=== PATIENT | female | born 1970 | race Caucasian/White ===

== ENCOUNTER → 2016-07-08 15:31 | Outpatient (CLI) | payer MEDICAID ==
[2016-02-20 05:59] VITALS: BMI 24.6
[~2016-07-08 15:31] MED LIST: GLIPIZIDE10 MG PO; HYDROCODONE-APA1 TAB PO; LISINOPRIL-HCTZ1 TA2 PO
== END | disposition home or self-care (01) ==
LOC: D.MRI 06-18 16:30
DX: M75.41 Impingement syndrome of right shoulder (principal)

== ENCOUNTER 2018-12-20 18:44 | Inpatient (IN) | payer MEDICAID ==
[~2018-12-20] VITALS: Ht 154.9 cm; Wt 60.3 kg
[2018-12-21] VITALS (7 sets, daily range): BP systolic 115–146; BP diastolic 53–78; Ht 154.9 cm; Wt 60.3 kg
[2018-12-21 06:14] LABS: BASOPHILS 0.2 % (0-2); EOSINOPHILS 1.6 % (0-7); HEMOGLOBIN 12.6 g/dL (12-16); IMMATURE GRANULOCYTES 0.3 % (0-5); LYMPHOCYTES 25.1 % (15-50); MCH 28.1 pg (26.0-34.0); MCHC 32.3 g/dL (31.0-37.0); MCV 87.1 fL (80.0-100.0); MEAN PLATELET VOLUME 8.8 fL (7.4-10.4); MONOCYTES 7.3 % (2-11); NEUTROPHILS 65.5 % (40-80); RBC 4.48 10x6/uL (4.00-5.40); WBC 10.5 10x3/uL (4.8-10.8)
[2018-12-21 06:15] LABS: PLATELET COUNT 379 10x3/uL (130-400)
[2018-12-21 06:22] LABS: ALBUMIN 3.1 g/dL (3.4-5.0); ALKALINE PHOSPHATASE 72 U/L (46-116); ALT (SGPT) 16 U/L (10-68); AMYLASE - SERUM 27 U/L (25-115); BILIRUBIN - TOTAL 0.23 mg/dL (0.2-1.3); CALC OSMOLALITY 289 mosm/kg (275-300); CALCIUM 8.8 mg/dL (8.5-10.1); CARBON DIOXIDE 20.8 mmol/L (21.0-32.0); CHLORIDE - SERUM 112 mmol/L (98-107); CREATININE - SERUM 0.6 mg/dL (0.6-1.3); LIPASE 264 U/L (73-393); POTASSIUM - SERUM 3.4 mmol/L (3.5-5.1); PROTEIN - SERUM 6.3 g/dL (6.4-8.2); SODIUM 144 mmol/L (136-145); UREA NITROGEN 11 mg/dL (7-18); eGFR NON AFRICAN AMERICAN > 90 mL/min (90-120)
[2018-12-21 06:23] LABS: GLUCOSE 173 mg/dL (74-106)
--- NOTE | 2018-12-21 10:55 | NUR ---
PT WANTING TO "GO SMOKE" EXPLAINED TO PT WE WERE UNABLE TO LET HER AFTER PAIN MEDS. DR BURRELL CALLED TO PREOP PT. PT REFUSED TO SIGN CONSENTS. "WOULD YOU HAVE SX HERE?" EXPLAINED TO PT I WAS UNABLE TO GIVE ADVICE. PT TEARFUL. PT UP WALKING IN YUN WITH COFFEE IN HAND. NO S/S OF ACUTE DISTRESS. CL IN PLACE.
--- NOTE | 2018-12-21 11:40 | HP ---
PATIENT: AURELIA TREJO MEDICAL RECORD: [id number] ACCOUNT: [id number] LOCATION:D.MS [id number] : 68 ADMISSION DATE: 12/20/18 PCP: JANEL MIDDLETON MD HISTORY AND PHYSICAL EXAMINATION HISTORY OF PRESENT ILLNESS: Ms. Trejo is a 48-year-old white female that has been experiencing increasing abdominal pain. She has history of a large lower abdominal hernia that has gradually gotten worse. I am unable to reduce it at this time. She has had some nausea and vomiting for the last few days. She is still having bowel movements, but the pain has been increasing. She has an upcoming appointment to see general surgery next week, but at this point, I do not think she can make it. She needs to be admitted for pain control and general surgical consultation. PAST MEDICAL HISTORY: Significant for depression, type 2 diabetes, cervical radiculopathy, chronic pain, hyperlipidemia, hypertension, psoriasis, cystocele, and COPD. PAST SURGICAL HISTORY: Previous surgeries include hernia repair and removal of ovarian cyst. ALLERGIES OR INTOLERANCES: INCLUDE LYRICA, TRAMADOL, AND NSAIDs. SHE STATES SHE HAD AN ANAPHYLACTIC REACTION TO TORADOL POSTOPERATIVELY. HOME MEDICATIONS: Include gabapentin 400 mg t.i.d., hydrocodone 10 p.r.n., venlafaxine 75 mg twice a day, glipizide 10 mg twice a day, lisinopril 10/hydrochlorothiazide 12.5 once a day, Januvia 100 mg a day, simvastatin 20 mg a day, ProAir inhaler, mometasone ointment, metformin 1000 b.i.d., and tizanidine 4 mg t.i.d. p.r.n. FAMILY HISTORY: Significant for cardiovascular disease and diabetes. SOCIAL HISTORY: The patient smokes a pack per day. REVIEW OF SYSTEMS: Significant for increasing abdominal pain, nausea, and vomiting. Still having bowel movements, chronic neck and back pain, rash associated with her psoriasis, and shortness of breath and wheezing from her tobacco abuse. PHYSICAL EXAMINATION: VITAL SIGNS: Height is 5 feet 1 inch, weight 133, BMI 25.2. BP 134/60. She is afebrile with 98% sat and heart rate 77. GENERAL: She is in dxof-pq-kfwhkaym distress secondary to her pain. HEENT: Head is normocephalic. Sclerae nonicteric. SKIN: Reveals widespread psoriatic changes. Mucous membranes are little dry. NECK: Soft. HEART: Regular. LUNGS: Somewhat diminished, but otherwise clear. ABDOMEN: Reveals large lower abdominal wall hernia, which I am unable to reduce at this time. EXTREMITIES: Lower extremities reveal no edema. NEUROLOGIC: Without gross focal deficits. IMPRESSION: 1. Large lower abdominal wall hernia, which is nonreducible. HISTORY AND PHYSICAL [id number] AURELIA TREJO 2. Type 2 diabetes. 3. Psoriasis. 4. Probable COPD. 5. Tobacco abuse. 6. Hypertension. 7. Chronic pain. PLAN: Admit. N.P.O. for now. Get a CT. Get a surgical consult. Sliding scale. Pain control. See orders for plan. TRANSINT:[id number] Voice Confirmation ID: [id number] DOCUMENT ID: [id number] DENNIS MCDONOUGH DO at 1140 CC: [id number] DICTATION DATE: 12/20/181833 LACQUER SPRAY BOOTH OPERATOR: 12/20/181928 ADM IN [facility] [address] [place] [address]
--- NOTE | 2018-12-21 19:28 | NUR ---
LATE ENTRY 0900. PT REFUSE TO SIGN CONSENTS. CALLED INDRA WHO STATED, "HE WOULD SIGN OFF ON HER CASE" SPOKE WITH CHRIST STOVALL WHO SPOKE WITH PT. PT AGREED TO "HAVE SURGERY" CALLED AND SPOKE WITH RN WHO WAS IN ROOM WITH INDRA. INDRA "OK CLD, WAS UNSURE IF HE WOULD DO SURGERY." SPOKE WITH PT ABOUT BEING NPO AFTER MIDNIGHT. CONSENTS NOT DONE DT NOT KNOWING WHICH MD WOULD BE PERFORMING SUGERY. EXPLAINED TO PT SHE MUST NOT LEAVE FLOOR AND WE HAD OPTION TO CONTROL PAIN WITH ETL INFORMATICA ARCHITECT. PT REFUSED, " I WANT TO LEAVE IT HOW IT IS." PT REFUSED NICOTINE PATCH. DILAUDID GIVEN PER MD ORDERS Q4PRN FOR PAIN. NO S/S OF ACUTE DISTRESS. SON AT BEDSIDE DURING CONVERSATION. CL IN PLACE.
--- NOTE | 2018-12-21 20:00 | NUR ---
OUT OF ROOM AT THIS TIME, DR BURRELL CAME BY TO TELL PT WOULD DO SURGERY IN AM BUT NOT IN ROOM
--- NOTE | 2018-12-21 23:00 | NUR ---
DILAUDID AIRCRAFT STRUCTURE MECHANIC STARTED ORDERED AT THIS TIME, INSTRUCTED PT SHE COULD NO LONGER GO OUT, VERBALIZED UNDERSTANDING, CONCENTS SIGNED FOR SURGERY
[2018-12-22 01:25] VITALS: BP 121/63
[2018-12-22 05:29] VITALS: BP 122/77
[2018-12-22 06:46] LABS: BASOPHILS 0.3 % (0-2); EOSINOPHILS 2.2 % (0-7); HEMATOCRIT 34.5 % (36.0-48.0); HEMOGLOBIN 11.1 g/dL (12-16); IMMATURE GRANULOCYTES 0.3 % (0-5); LYMPHOCYTES 33.3 % (15-50); MCH 28.1 pg (26.0-34.0); MCHC 32.2 g/dL (31.0-37.0); MCV 87.3 fL (80.0-100.0); MEAN PLATELET VOLUME 8.6 fL (7.4-10.4); MONOCYTES 6.9 % (2-11); PLATELET COUNT 334 10x3/uL (130-400); RBC 3.95 10x6/uL (4.00-5.40); RDW 15.4 % (11.5-14.5)
[2018-12-22 06:59] LABS: ALBUMIN 2.6 g/dL (3.4-5.0); ALKALINE PHOSPHATASE 60 U/L (46-116); ALT (SGPT) 14 U/L (10-68); BILIRUBIN - TOTAL 0.26 mg/dL (0.2-1.3); CALCIUM 8.3 mg/dL (8.5-10.1); CARBON DIOXIDE 22.2 mmol/L (21.0-32.0); CREATININE - SERUM 0.5 mg/dL (0.6-1.3); GLUCOSE 159 mg/dL (74-106); POTASSIUM - SERUM 3.4 mmol/L (3.5-5.1); PROTEIN - SERUM 5.3 g/dL (6.4-8.2); SODIUM 147 mmol/L (136-145); eGFR NON AFRICAN AMERICAN > 90 mL/min (90-120)
[2018-12-22 07:03] LABS: WBC 7.6 10x3/uL (4.8-10.8)
[2018-12-22 07:18] LABS: CALC OSMOLALITY 292 mosm/kg (275-300); CHLORIDE - SERUM 116 mmol/L (98-107); UREA NITROGEN 8 mg/dL (7-18)
[2018-12-22 08:03] LABS: HCG URINE NEGATIVE (NEGATIVE)
--- NOTE | 2018-12-22 09:00 | NUR ---
ASSESSMENT PER FLOW SHEET. PT IS WITHOUT DISTRESS.NPO FOR SURGERY TODAY. PT HAS BEEN AMBULATING IN HALLS.MONITOR FOR NEEDS
[2018-12-22 09:11] VITALS: BP 118/74; BP 18/74
--- NOTE | 2018-12-22 11:57 | NUR ---
TO OR VIA BED
[2018-12-22 17:51] VITALS: BP 119/61
--- NOTE | 2018-12-22 17:58 | NUR ---
BACK TO ROOM VIA BED. PT IS WITHOUT DISTRESS.STATES PAIN 5/10 SCALE TO ABDOMEN. PT IS VERY DROWSY. SATS 98 ON 2 LITERS PER NASAL CANULA. LAP SITE DRESSINGS X4 CDI. LAP SITE DRESSING TO MIDLINE LOWER ABD WITH MINIMAL BLOOD NOTED. CAMILO TO GRAVITY WITH BLUE URINE IN BAG.SCD'S PLACED ON PT.FAMILY AT BEDSIDE.
--- NOTE | 2018-12-22 18:17 | NUR ---
C02 MONITOR ON PT. ALSO FALL PREVENTION INITIATED WITH BED ALARM AND YELLOW BAND.
--- NOTE | 2018-12-22 18:49 | NUR ---
PT REMAINS WITHOUT CHANGE. SATS 99% ON 2 LITERS PER NASAL CANULA
--- NOTE | 2018-12-22 19:00 | NUR ---
RESTING IN BED FAMILY AT BEDSIDE, AROUSES EASILY, REPORTS PAIN 10 /10, EPIDURAL IN USE FOR PAIN CONTROL, CO2 SENSOR ALARMING NASAL CANULA WITH SENSOR REPLACED, ABS SOFT TENDER DRESSINGS INTACT LOWER DRESSING WITH DRAINAGE MARKED NO NEW DRAINAGE NOTED AT THIS TIME, CAMILO CATH TO GRAVITY DRAINAGE SEE SHIFT ASSESSMENT CALL LIGHT IN REACH
--- NOTE | 2018-12-22 20:10 | NUR ---
CALL TO VIC ANESTHIOLOGIST, REPORTED PAIN CONTINUED 10/10 WITH EPIDURAL, STATED I WAS AFRAID IT WASNT WORKING NEED TO CALL AND GET SALES STRATEGY MANAGER DILAUDID RESTARTED SINCE THAT WAS WHAT SHE WAS ON PRIOR TO [facility]. STATES WILL JUST LEAVE EPIDURAL IN PLACE JUST MOVE BUTTON OUT OF REACH. DR TIRADO CALLED INFORMED OF ABOVE ORDERS RECIEVED FOR DILAUDID SALES STRATEGY MANAGER. STARTED ORDERED
[2018-12-22 21:22] VITALS: BP 125/71
--- NOTE | 2018-12-22 23:30 | NUR ---
REPORTS PAIN BETTER AT 5/10
[2018-12-23 01:15] VITALS: BP 136/71
[2018-12-23 06:04] VITALS: BP 148/74
--- NOTE | 2018-12-23 07:30 | NUR ---
PT RESTING IN BED WITH EYES CLOSED. PT REPORTS PAIN AT THIS TIME /, DILAUDID PHYSICAL EDUCATION AIDE INTACT AND USING. RE-EDUCATED PT REGARDING USE OF PAIN MEDICATION. PT VOICES UNDERSTANDING AND USES PHYSICAL EDUCATION AIDE AT THIS TIME. O2 @ 2L NC WITH CONTINUOUS POX IN PLACE, 97-99%, RESP 16-20 DURING THIS TIME. CENTRAL LINE TO RIGHT JUGULAR WITH NS@ 100ML/HR INFUSING VIA PUMP. SITE WITHOUT REDNESS OR EDEMA. PT REMAINS NPO EXCEPT ICE CHIPS, ICE CHIPS AT BEDSIDE. ABD BINDER IN PLACE. EPIDURAL REMAINS INTACT, BUT NOT USING. DENIES FURTHER NEEDS AT THIS TIME. CL WITHIN REACH. ENCOURAGED TO CALL WITH NEEDS. CONTINUE POC
[2018-12-23 08:03] LABS: BASOPHILS 0.1 % (0-2); EOSINOPHILS 0 % (0-7); HEMATOCRIT 32.7 % (36.0-48.0); HEMOGLOBIN 10.5 g/dL (12-16); IMMATURE GRANULOCYTES 0.3 % (0-5); LYMPHOCYTES 8.9 % (15-50); MCH 28.2 pg (26.0-34.0); MCHC 32.1 g/dL (31.0-37.0); MCV 87.9 fL (80.0-100.0); MEAN PLATELET VOLUME 8.8 fL (7.4-10.4); MONOCYTES 9.3 % (2-11); NEUTROPHILS 81.4 % (40-80); RBC 3.72 10x6/uL (4.00-5.40); RDW 15.6 % (11.5-14.5)
[2018-12-23 08:10] LABS: PLATELET COUNT 261 10x3/uL (130-400); WBC 13.3 10x3/uL (4.8-10.8)
[2018-12-23 08:24] LABS: ALBUMIN 2.5 g/dL (3.4-5.0); ALKALINE PHOSPHATASE 55 U/L (46-116); ALT (SGPT) 13 U/L (10-68); BILIRUBIN - TOTAL 0.35 mg/dL (0.2-1.3); CALC OSMOLALITY 294 mosm/kg (275-300); CARBON DIOXIDE 17.5 mmol/L (21.0-32.0); CREATININE - SERUM 0.5 mg/dL (0.6-1.3); GLUCOSE 185 mg/dL (74-106); MAGNESIUM - SERUM 2.1 mg/dL (1.8-2.4); PHOSPHOROUS 2.5 mg/dL (2.5-4.9); POTASSIUM - SERUM 3.1 mmol/L (3.5-5.1); PROTEIN - SERUM 5.2 g/dL (6.4-8.2); SODIUM 146 mmol/L (136-145); TROPONIN-I < 0.017 ng/mL (0.000-0.060); UREA NITROGEN 11 mg/dL (7-18); eGFR NON AFRICAN AMERICAN > 90 mL/min (90-120)
[2018-12-23 08:25] LABS: CHLORIDE - SERUM 116 mmol/L (98-107)
[2018-12-23 08:40] VITALS: BP 168/75
--- NOTE | 2018-12-23 09:30 | NUR ---
PT RESTING IN BED WITH EYES CLOSED. NO ACUTE DISTRESS NOTED. O2 SAT 98% RESP 18. CL WITHIN REACH.
[2018-12-23 12:03] VITALS: BP 160/85
--- NOTE | 2018-12-23 13:21 | NUR ---
PT TURNED TO RIGHT SIDE WITH PILLOW BETWEEN KNEES AND 1 TO BACK. COUGHED UP CLEAR PHELEHM. ENCOURAGED TO COUGH AND DEEP BREATH. PULLED 500CC ON IS. CALL LIGHT IN REACH
[2018-12-23 16:39] VITALS: BP 169/87
--- NOTE | 2018-12-23 17:12 | OP ---
PATIENT NAME: AURELIA KAPLAN MEDICAL RECORD: [id number] :68 LOCATION:D.MS [id number] ADMISSION DATE:12/20/18 SURGEON: GUSTAVO BURRELL MD DATE OF OPERATION: 12/22/2018 PREOPERATIVE DIAGNOSIS: Recurrent incarcerated incisional hernia causing a small-bowel obstruction. POSTOPERATIVE DIAGNOSES: Recurrent incarcerated incisional hernia causing a small-bowel obstruction with 3 large hernia defects; one in the left lower quadrant, one in the right lower quadrant; and then one centrally located around the inferior aspect of the indwelling mesh. Incarcerated bowel that necessitated a small bowel resection in the right lower quadrant. PROCEDURES: 1. Open recurrent incarcerated incisional hernia repair with mesh (subfascial mesh). 2. Excisional debridement of abdominal wall (removal of old mesh in its entirety). 3. Small-bowel resection with ycbm-dn-eshj anastomosis. 4. Abdominal wall closure necessitating the bilateral component separation technique. The dimensions of the myofascial release on the right was 20 cm, on the left 18 cm. SURGEON: Gustavo Burrell MD BUYING AGENT: Alec Fajardo [facility]. BLOOD LOSS: Please see the anesthesia sheet. DRAINS: None. The risks, possible complications and alternatives to procedure were explained to the patient. She elects to proceed. The discussion specifically included but was not limited to, bleeding requiring emergency reoperation, infection, colostomy formation, and the probability that she would require mechanical ventilation postoperatively and the probability that she would require ICU stay postoperatively. OPERATIVE COURSE: The patient was conveyed to the operating room electively on 12/22/2018. General anesthesia was induced by the anesthesia staff. The abdomen was sterilely prepped and draped. Through the use of double curvilinear incisions, I excised the skin and subcutaneous tissue in the midline. There was a good bit of subcutaneous edema likely from the bowel obstruction. I entered the peritoneal cavity sharply. There were several areas of bowel. The bowel was incarcerated in several areas due to adhesions; however, there was one loop of bowel that was a knuckle of bowel that was stuck up in the right lower quadrant. I was unable to reduce this. I started to try to free up this bowel sharply. With retraction, a tear occurred and this necessitated removal of this portion of bowel. Through the tear, anvils of the BONNIE-75 stapler were advanced and the bowel was kept in apposition side by side. I did fire the stapler. The resulting enteric defect OPERATIVE REPORT [id number] AURELIA KAPLAN was closed with a single firing of the TA-60 stapler. I then continued to release the small bowel as well as the large bowel from the overlying mesh as well as from within the hernia sacs. There was a medium-sized oval portion of the mesh located centrally and inferiorly on both sites. It appeared that it was within the patient's hernia sac itself. It went superiorly (cephalad), the mesh was well incorporated into the abdominal wall. This mesh was going to cause interference in the hernia repair and that is why I elected for an excisional debridement of this mesh (I removed the mesh in its entirety). The debridement was carried out with the Garcia scissors. I then removed some redundant hernia sac from the hernia defects. I excised some attenuated fascia on either side of the midline. I tried to approximate the muscle and fascia in the midline and was unable to do so due to a loss of abdominal domain. Therefore the component separation technique was indicated. A sagittal incision was accomplished in the anterior axillary line from the right costal margin to the anterior superior iliac spine. I dissected down through skin and subcutaneous tissues. I identified the external oblique muscle, which was divided with the electrocautery. I then performed some blunt dissection between the external oblique muscle and the underlying internal oblique muscle. With this release having been completed and the dimensions are listed above, I tried to pull the fascia together in the midline and this was not successful. Therefore, the bilateral component separation technique for closure of the abdomen was indicated. Around on the left side, I performed a sagittal incision from the left anterior superior iliac spine to the left costal margin. Sharp dissection was carried down through skin and subcutaneous tissues. The external oblique muscle was divided with the electrocautery. I then performed some blunt dissection underneath the external oblique muscle, it from the internal oblique muscle. After doing this, I was able to close the fascia in the midline. The skin incision went from the umbilicus down to the pubic symphysis. I created a window between the bladder and the pubic symphysis. Intravenous methylene blue was given and there was no evidence of spillage of methylene blue. No evidence of a bladder injury. No evidence of a ureteral injury. I then placed a Parietex mesh within the abdominal cavity. The slick side was toward the bowel and the rough side was toward the anterior abdominal wall. On the right side of the abdomen, I tacked this in place with the SecureStrap Tacker. I then checked and made sure that there was no bowel entrapped within the mesh or between the mesh and the anterior abdominal wall and there was no injury from the tacker. I placed a portion of this mesh down in the pelvis between the bladder and the pubic symphysis. I sutured this in place at one site with a 2-0 Prolene suture. This was suturing the mesh to the back of the pubic symphysis. On the right side of the abdomen, I began to place my mesh. At the 5 o'clock OPERATIVE REPORT [id number] AURELIA KAPLAN position and 3 o'clock position of the mesh, I sutured a 0-Surgidac suture with long tags. Incisions were accomplished on the anterior abdominal wall on the left side of the abdomen and I advanced a laparoscopic suture passer through each one of these incisions. Each time, I grasped one of the tails of the Surgidac suture and then tied. This pulled the mesh over to the left side of the abdomen. I completed my herniorrhaphy by tacking on the left side of the abdomen and the mesh to the anterior abdominal wall with the SecureStrap Tacker. Again, there was no apparent injury to the bowels. No entrapment of the bowels either. I irrigated with normal saline. The fascia was closed with running looped #1 PDS from cephalad and caudad directions incorporating a portion of this mesh. The subdermis in the midline was approximated with interrupted 3-0 Vicryls. The skin was approximated with metallic clips. At the component separation release sites on either side of the abdomen, in the flanks, these were closed with interrupted 3-0 Vicryl for the deep dermis as well as metallic clips to the skin. Sterile dressings were applied. The patient was then extubated and conveyed to post-anesthesia care unit where she was in stable condition. It was not really necessary for her to go to the ICU and she was not going to require mechanical ventilation. TRANSINT:[id number] Voice Confirmation ID: [id number] DOCUMENT ID: [id number] GUSTAVO BURRELL MD at 1712 CC: SHIRLENE JORGENSEN [id number] DICTATION DATE: 12/22/181751 SHIP'S SURVEYOR: 12/22/18 2338 ADM IN [place] [id number] [place] [address]
--- NOTE | 2018-12-23 19:15 | NUR ---
RECEIVED CARE FROM DAY NURSE. LYING IN BED WITH EYES CLOSED. NO DISTRESS NOTED. IV INFUSING PER ORDER TO RIGHT TLIJ. CAMILO TO GRAVITY.
[2018-12-23 20:00] VITALS: BP 171/86
--- NOTE | 2018-12-23 21:38 | NUR ---
C/O OF PAIN SO BAD SHE CANT TAKE IT ANY MORE. ORDER RECEIVED TO INCREASE DOSAGE ON LOCK MAINTENANCE SUPERVISOR TO 0.4 EVERY 10 MIN WITH A 4HR/8MG LOCKOUT AND TO ADD TORODOL IV Q6 HOURS. SPOKE WITH PT AND REPORTS SHE CANT TAKE TORODOL BECAUSE IT MAKES HER THROW UP TOO BAD. SETTINGS CHANGED ON LOCK MAINTENANCE SUPERVISOR AT THIS TIME.
[2018-12-24] VITALS: BP 154/82
--- NOTE | 2018-12-24 03:43 | NUR ---
I have reviewed this patient and I concur with the Shift Assessment completed by the Licensed Practical Nurse today this shift.
[2018-12-24 04:00] VITALS: BP 155/74
[2018-12-24 06:01] LABS: BASOPHILS 0.1 % (0-2); EOSINOPHILS 0 % (0-7); HEMATOCRIT 30.4 % (36.0-48.0); HEMOGLOBIN 9.6 g/dL (12-16); IMMATURE GRANULOCYTES 0.2 % (0-5); MCH 27.6 pg (26.0-34.0); MCHC 31.6 g/dL (31.0-37.0); MCV 87.4 fL (80.0-100.0); MONOCYTES 8.6 % (2-11); NEUTROPHILS 83.1 % (40-80); PLATELET COUNT 220 10x3/uL (130-400); RBC 3.48 10x6/uL (4.00-5.40); RDW 15.6 % (11.5-14.5); WBC 14.8 10x3/uL (4.8-10.8)
[2018-12-24 06:20] LABS: ALBUMIN 2.2 g/dL (3.4-5.0); ALKALINE PHOSPHATASE 61 U/L (46-116); ALT (SGPT) 14 U/L (10-68); CALC OSMOLALITY 288 mosm/kg (275-300); CALCIUM 8.2 mg/dL (8.5-10.1); CARBON DIOXIDE 15.4 mmol/L (21.0-32.0); CHLORIDE - SERUM 112 mmol/L (98-107); CREATININE - SERUM 0.5 mg/dL (0.6-1.3); GLUCOSE 181 mg/dL (74-106); PROTEIN - SERUM 5.3 g/dL (6.4-8.2); SODIUM 143 mmol/L (136-145); UREA NITROGEN 9 mg/dL (7-18); eGFR NON AFRICAN AMERICAN > 90 mL/min (90-120)
[2018-12-24 06:23] LABS: POTASSIUM - SERUM 2.6 mmol/L (3.5-5.1)
[2018-12-24 08:43] VITALS: BP 138/73
[2018-12-24 10:34] LABS: MAGNESIUM - SERUM 1.8 mg/dL (1.8-2.4); PHOSPHOROUS 2.1 mg/dL (2.5-4.9)
[2018-12-24 12:32] VITALS: BP 143/70
--- NOTE | 2018-12-24 12:39 | NUR ---
PT RESTING IN BED. NO SIGNS OF DISTRESS. IV TO RIGHT JUGULAR PATENT NO REDNESS OR TENDERNESS. HAS CAMILO NO KINKS. ON TELEMETRY 108 ST. COMPLAINS OF PAIN MEDICATIONS GIVEN. DENIES ANY FUTHER NEED AT THIS TIME.CALL LIGHT IN REACH. BED LOW POSITION. NO FAMILY AT BEDSIDE AT THIS TIME. ON 2L NC.
[2018-12-24 14:49] LABS: MAGNESIUM - SERUM 1.8 mg/dL (1.8-2.4); PHOSPHOROUS 1.8 mg/dL (2.5-4.9)
[2018-12-24 14:52] LABS: POTASSIUM - SERUM 2.8 mmol/L (3.5-5.1)
[2018-12-24 16:59] VITALS: BP 133/65
--- NOTE | 2018-12-24 19:15 | NUR ---
RECEIVED CARE FROM DAY NURSE. SITTING IN BEDSIDE CHAIR. EYES CLOSED, RESP EVEN AND UNLABORED. CALL LIGHT SIDE. NO DISTRESS NOTED. IV INFUSING PER ORDER TO RIGHT IJ. IV SL TO LEFT FA.
[2018-12-24 20:40] VITALS: BP 114/60
[2018-12-25 00:56] VITALS: BP 126/65
--- NOTE | 2018-12-25 01:15 | NUR ---
BACK TO BED AFTER URNINATION.
--- NOTE | 2018-12-25 04:30 | NUR ---
RETURNED TO CHAIR. REPORTS AN INCREASE IN PAIN.
--- NOTE | 2018-12-25 05:14 | NUR ---
XRAY REPORTS THEY WILL DO XRAY LATER DUE TO PATIENT JUST RETURNING TO CHAIR AND PAIN. BOLUS GIVEN PER ORDER.
[2018-12-25 05:24] LABS: BASOPHILS 0.1 % (0-2); EOSINOPHILS 0.3 % (0-7); HEMATOCRIT 30.1 % (36.0-48.0); HEMOGLOBIN 9.9 g/dL (12-16); IMMATURE GRANULOCYTES 0.4 % (0-5); LYMPHOCYTES 10.2 % (15-50); MCH 28.4 pg (26.0-34.0); MCHC 32.9 g/dL (31.0-37.0); MCV 86.5 fL (80.0-100.0); MEAN PLATELET VOLUME 9.5 fL (7.4-10.4); MONOCYTES 8.9 % (2-11); NEUTROPHILS 80.1 % (40-80); PLATELET COUNT 231 10x3/uL (130-400); RBC 3.48 10x6/uL (4.00-5.40); RDW 15.7 % (11.5-14.5); WBC 16.3 10x3/uL (4.8-10.8)
[2018-12-25 05:41] LABS: ALBUMIN 2.1 g/dL (3.4-5.0); ALKALINE PHOSPHATASE 67 U/L (46-116); ALT (SGPT) 12 U/L (10-68); BILIRUBIN - TOTAL 0.62 mg/dL (0.2-1.3); CALC OSMOLALITY 283 mosm/kg (275-300); CHLORIDE - SERUM 111 mmol/L (98-107); CREATININE - SERUM 0.5 mg/dL (0.6-1.3); GLUCOSE 134 mg/dL (74-106); POTASSIUM - SERUM 3.1 mmol/L (3.5-5.1); PROTEIN - SERUM 5.8 g/dL (6.4-8.2); SODIUM 142 mmol/L (136-145); UREA NITROGEN 9 mg/dL (7-18); eGFR NON AFRICAN AMERICAN > 90 mL/min (90-120)
[2018-12-25 05:44] VITALS: BP 128/65
--- NOTE | 2018-12-25 08:30 | NUR ---
AAOX4. SITTING UP IN CHAIR. ASSITED PT TO BR. PT DID WELL. I.S. TEACHING DONE WITH RETURN DEMONSTRATION. PT PULLED 500 ON I.S. NO S/S OF ACUTE DISTRESS. CL IN PLACE.
[2018-12-25 10:05] LABS: MAGNESIUM - SERUM 1.7 mg/dL (1.8-2.4); PHOSPHOROUS 1.6 mg/dL (2.5-4.9)
[2018-12-25 10:25] VITALS: BP 117/58
[2018-12-25 15:42] VITALS: BP 104/58
[2018-12-25 15:44] LABS: MAGNESIUM - SERUM 1.7 mg/dL (1.8-2.4); POTASSIUM - SERUM 3.2 mmol/L (3.5-5.1)
--- NOTE | 2018-12-25 16:19 | NUR ---
PER PHARM NO PH IV IN STOCK. WILL SEND PHOS PKT AND STOCK PYXIS. CHANGED CENTRAL LINE DRESSING PER MD ORDER. NO S/S OF ACUTE DISTRESS. CL IN PLACE.
--- NOTE | 2018-12-25 18:06 | NUR ---
PT SAT UP IN CHAIR ALL DAY. "I PREFER THE CHAIR." PT AMBULATED THROUGHOUT DAY TO BR. MIN ASSIST. PRODUCTIVE COUGH WITH YELLOW SPUTUM NOTED. ENCOURAGED PT TO COUGH, DEEP BREATH AND USE I.S. PT "UNDERSTANDS AND RETURNED DEMONSTRATION". NO S/S OF ACUTE DISTRESS. CL IN PLACE.
--- NOTE | 2018-12-25 19:15 | NUR ---
RECIEVED CARE FROM DAY NURSE. SITTING UP IN BEDSIDE CHAIR. EYES CLOSED. RESP EVEN AND UNLABORED. CALL LIGHT AT SIDE. IV INFUSING PER ORDER TO RIGHT IJ. IV TO LEFT FA SL.
--- NOTE | 2018-12-25 19:23 | NUR ---
NO PHOS PKTS IN PYXIS NOTED.
[2018-12-25 21:22] VITALS: BP 129/71
[2018-12-25 23:25] LABS: APPEARANCE CLEAR (CLEAR); BILIRUBIN NEGATIVE (NEGATIVE); COLOR YELLOW (YELLOW); GLUCOSE NEGATIVE (NEGATIVE); NITRITE NEGATIVE (NEGATIVE); PROTEIN NEGATIVE (NEGATIVE); UROBILINOGEN NORMAL (NORMAL)
[2018-12-25 23:26] LABS: KETONE MODERATE mg/dL (NEGATIVE)
[2018-12-26 01:06] VITALS: BP 100/55
--- NOTE | 2018-12-26 01:47 | NUR ---
I have reviewed this patient and I concur with the Shift Assessment completed by the Licensed Practical Nurse today this shift.
--- NOTE | 2018-12-26 02:11 | NUR ---
ASSISSTED TO BSC. GAS PASSED. PER PT THIS IS THE FIRST TIME TO PASS GAS.
[2018-12-26 04:56] VITALS: BP 91/55
[2018-12-26 05:36] LABS: BASOPHILS 0.1 % (0-2); EOSINOPHILS 0.9 % (0-7); HEMATOCRIT 26.8 % (36.0-48.0); HEMOGLOBIN 8.9 g/dL (12-16); IMMATURE GRANULOCYTES 0.2 % (0-5); LYMPHOCYTES 12.2 % (15-50); MCH 28.7 pg (26.0-34.0); MCHC 33.2 g/dL (31.0-37.0); MCV 86.5 fL (80.0-100.0); MONOCYTES 10.1 % (2-11); NEUTROPHILS 76.5 % (40-80); PLATELET COUNT 213 10x3/uL (130-400); RDW 15.9 % (11.5-14.5)
[2018-12-26 05:44] LABS: ALBUMIN 1.8 g/dL (3.4-5.0); ALKALINE PHOSPHATASE 68 U/L (46-116); ALT (SGPT) 13 U/L (10-68); BILIRUBIN - TOTAL 0.56 mg/dL (0.2-1.3); CALC OSMOLALITY 284 mosm/kg (275-300); CALCIUM 8.5 mg/dL (8.5-10.1); CARBON DIOXIDE 16.3 mmol/L (21.0-32.0); CHLORIDE - SERUM 113 mmol/L (98-107); CREATININE - SERUM 0.5 mg/dL (0.6-1.3); GLUCOSE 173 mg/dL (74-106); MAGNESIUM - SERUM 1.9 mg/dL (1.8-2.4); PROTEIN - SERUM 5.5 g/dL (6.4-8.2); SODIUM 142 mmol/L (136-145); UREA NITROGEN 8 mg/dL (7-18); eGFR NON AFRICAN AMERICAN > 90 mL/min (90-120)
--- NOTE | 2018-12-26 05:55 | NUR ---
LOOSE BM X1
[2018-12-26 06:01] LABS: POTASSIUM - SERUM 3.9 mmol/L (3.5-5.1)
[2018-12-26 10:15] VITALS: BP 100/54
--- NOTE | 2018-12-26 11:17 | NUR ---
MORNING ASSESSMENT COMPLETE. SEE ASSESSMENT FLOWSHEET FOR FURTHER DETAILS. PT LYING IN BED. DENIES NEEDS AT THIS TIME. GIVEN REPORT TO JUANPABLO VÁSQUEZ
[2018-12-26 12:28] VITALS: BP 99/58
[2018-12-26 12:37] LABS: % SATURATION 5 % (15-55); IRON 10 ug/dl (35-150); TOTAL IRON BIND CAPACITY 170 ug/dl (260-445); UNSAT IRON BIND CAPACITY 160 ug/dl (150-375)
[2018-12-26 12:51] LABS: MAGNESIUM - SERUM 1.8 mg/dL (1.8-2.4)
--- NOTE | 2018-12-26 14:15 | NUR ---
NUTRITION F/U DIET ADVANCED TO CLEAR LIQUID. WILL MONITOR DIET ADVANCEMENT, PT PROGRESS. RD FOLLOWING
[2018-12-26 17:30] VITALS: BP 108/50
[2018-12-26 20:31] VITALS: BP 107/66
--- NOTE | 2018-12-26 21:00 | NUR ---
FSBS 308 12 UNITS OF INSULIN GIVEN PER SS.
--- NOTE | 2018-12-26 22:00 | NUR ---
PT RESTING IN BED. ALERT AND ORIENTED. NO SINGS OF DISTRESS. BREATHING EVEN AND UNLABORED. CALL LIGHT IN REACH. WILL CONTINUE PLAN OF CARE. PT STATES NO PROBLEMS AT THIS TIME.
[2018-12-27 00:15] VITALS: BP 103/52
[2018-12-27 05:08] VITALS: BP 128/63
[2018-12-27 06:29] LABS: BASOPHILS 0.1 % (0-2); EOSINOPHILS 2.3 % (0-7); HEMATOCRIT 26.1 % (36.0-48.0); HEMOGLOBIN 8.5 g/dL (12-16); IMMATURE GRANULOCYTES 0.3 % (0-5); MCH 28.1 pg (26.0-34.0); MCHC 32.6 g/dL (31.0-37.0); MCV 86.1 fL (80.0-100.0); MEAN PLATELET VOLUME 9.6 fL (7.4-10.4); MONOCYTES 10.7 % (2-11); NEUTROPHILS 68.6 % (40-80); PLATELET COUNT 239 10x3/uL (130-400); RBC 3.03 10x6/uL (4.00-5.40); RDW 16.1 % (11.5-14.5); WBC 9.8 10x3/uL (4.8-10.8)
--- NOTE | 2018-12-27 06:46 | NUR ---
I have reviewed this patient and I concur with the Shift Assessment completed by the Licensed Practical Nurse today this shift.
--- NOTE | 2018-12-27 06:55 | NUR ---
FSBS 104 NO INSULIN GIVEN AT THIS TIME PER SS.
[2018-12-27 06:58] LABS: ALBUMIN 1.8 g/dL (3.4-5.0); ALKALINE PHOSPHATASE 74 U/L (46-116); BILIRUBIN - TOTAL 0.44 mg/dL (0.2-1.3); CALCIUM 8.3 mg/dL (8.5-10.1); CARBON DIOXIDE 17.1 mmol/L (21.0-32.0); CHLORIDE - SERUM 112 mmol/L (98-107); CREATININE - SERUM 0.6 mg/dL (0.6-1.3); MAGNESIUM - SERUM 1.7 mg/dL (1.8-2.4); PROTEIN - SERUM 5.4 g/dL (6.4-8.2); SODIUM 144 mmol/L (136-145); eGFR NON AFRICAN AMERICAN > 90 mL/min (90-120)
[2018-12-27 07:13] LABS: ALT (SGPT) 26 U/L (10-68); CALC OSMOLALITY 284 mosm/kg (275-300); GLUCOSE 124 mg/dL (74-106); PHOSPHOROUS 3.6 mg/dL (2.5-4.9); POTASSIUM - SERUM 3.3 mmol/L (3.5-5.1); UREA NITROGEN 5 mg/dL (7-18)
[2018-12-27 08:44] VITALS: BP 126/60
--- NOTE | 2018-12-27 09:42 | MORECARE ---
CASE MANAGEMENT DISCHARGE SUMMARY PATIENT: AURELIA KAPLAN UNIT: [id number] ADM DATE: 12/20/18 AGE: 48 : [birth year] SEX: F ROOM/BED: D.2213 AUTHOR: CINTHIA,DOC PHYSICIAN: REFERRING PHYSICIAN: SHIRLENE JORGENSEN MD DATE OF SERVICE: 12/27/18 Discharge Plan Patient Name: AURELIA KAPLAN Facility: [facility]:[place] : 1970 Planned Disposition: Home Health Service Anticipated Discharge Date: Discharge Date: Expected LOS: Initial Reviewer: [email or web address] Initial Review Date: 12/27/2018 Generated: 12/27/18 10:42 am Comments DCP- Discharge Planning Updated by [email or web address]: Rosario Jay on 12/27/18 8:[address] Patient Name: AURELIA KAPLAN Admission Status: Elective Accout number: [id number] Admission Date: 12-20-2018 : 1970 Admission Diagnosis:OTHER AND UNSP VENTRAL HERNIA WITH OBSTRUCTION, W/O CAR Attending: SHIRLENE JORGENSEN Current LOS: 7 Anticipated DC Date: Planned Disposition: Home Health Service Primary Insurance: [place] PRIVATE OPTIONS LYNDSAY Discharge Planning Comments: CM MET WITH PATIENT ABOUT DC PLANNING/NEEDS. STATES PLANS TO DC TO HOME WITH HER . STATES IF NEEDS HH [facility] SIGNED FOR [facility], [facility], OR [facility]. STATES HOME IS SAFE. CM TO FOLLOW AND ASSIST NEEDED WITH DC PLANNING/NEEDS. Principal Biostatistician: Rosario Jay DCPIA - Discharge Planning Initial Assessment Updated by [email or web address]: Rosario Jay on 12/27/18 9:33 am * Is the patient Alert and Oriented? Yes * PCP CEASAR * Pharmacy [facility] * Preadmission Environment Home with Family * ADLs Independent * List name and contact numbers for known caregivers / representatives who currently or will assist patient after discharge: ALTON, , * Can the patient safely return to the preadmission environment? Yes * Has this patient been hospitalized within the prior 30 days at any hospital? No Coverage Notice Reviewer: [email or web address] Dru Jay Notice Issued Date-Time: 12/27/2018 9:35 Notice Type: Patient Choice Letter Notice Delivered To: Patient Relationship to Patient: Fuel Tank Sealer And Tester Name: Delivery Method: HAND - Hand Delivered Alisha Days: Prior Verbal Notification: Recipient Understood Notice: Yes Recipient Signature: Yes Med Rec Note Co-signed by Attending: Coverage Notice Comment: [facility], [facility], [facility]. Patient Name: AURELIA KAPLAN Page [id number] at 0942 All edits/amendments must be made on the electronic document DICTATION DATE: 12/27/18941 PROSTHETICS LAB TECHNICIAN: JON 12/27/18941 RPT#: [id number] DC DATE: STATUS: ADM IN [facility] [address] [place] [address] END OF REPORT
[2018-12-27 12:50] VITALS: BP 110/62
--- NOTE | 2018-12-27 12:55 | NUR ---
PT SITTING UP IN CHAIR. DENIES NEEDS AT THIS TIME. CL IN REACH. SIDE RAILS UP X3 FOR PT SAFETY. BED IN LOWEST POSITION.
[2018-12-27 20:24] VITALS: BP 113/63
--- NOTE | 2018-12-27 21:39 | NUR ---
FSBS 57 RECHECK 54 PT A&O GAVE 2% MILK AND GRAMCRAKERS FSBS RECHECK 188
[2018-12-28 00:28] VITALS: BP 93/49
[2018-12-28 04:45] VITALS: BP 124/60
[2018-12-28 04:54] LABS: BASOPHILS 0.3 % (0-2); EOSINOPHILS 2.4 % (0-7); HEMATOCRIT 25.7 % (36.0-48.0); HEMOGLOBIN 8.3 g/dL (12-16); MCH 27.5 pg (26.0-34.0); MCHC 32.3 g/dL (31.0-37.0); MCV 85.1 fL (80.0-100.0); MEAN PLATELET VOLUME 9.2 fL (7.4-10.4); MONOCYTES 9.5 % (2-11); NEUTROPHILS 63.8 % (40-80); PLATELET COUNT 232 10x3/uL (130-400); RBC 3.02 10x6/uL (4.00-5.40); RDW 16.2 % (11.5-14.5)
[2018-12-28 05:17] LABS: ALBUMIN 1.8 g/dL (3.4-5.0); ALKALINE PHOSPHATASE 68 U/L (46-116); BILIRUBIN - TOTAL 0.29 mg/dL (0.2-1.3); CALCIUM 8.6 mg/dL (8.5-10.1); CARBON DIOXIDE 19.1 mmol/L (21.0-32.0); CHLORIDE - SERUM 112 mmol/L (98-107); CREATININE - SERUM 0.5 mg/dL (0.6-1.3); MAGNESIUM - SERUM 1.6 mg/dL (1.8-2.4); POTASSIUM - SERUM 3.6 mmol/L (3.5-5.1); PROTEIN - SERUM 5.3 g/dL (6.4-8.2); SODIUM 141 mmol/L (136-145); UREA NITROGEN 4 mg/dL (7-18); eGFR NON AFRICAN AMERICAN > 90 mL/min (90-120)
[2018-12-28 05:45] LABS: ALT (SGPT) 26 U/L (10-68)
[2018-12-28 05:54] LABS: CALC OSMOLALITY 281 mosm/kg (275-300); GLUCOSE 177 mg/dL (74-106); PHOSPHOROUS 2.6 mg/dL (2.5-4.9)
[2018-12-28 08:50] VITALS: BP 119/59
--- NOTE | 2018-12-28 10:28 | NUR ---
MORNING ASSESSMENT COMPLETE. SEE ASSESSMENT FLOWSHEET FOR FURTHER DETAILS. PT LYING IN BED AAO X4 TO PERSON, PLACE, TIME, AND SITUATION. DENIES NEEDS AT THIS TIME. CL IN REACH. SIDE RAILS UP X3 FOR PT SAFETY. BED IN LOWEST POSITION. AT BEDSIDE.
[2018-12-28] MEDS ORDERED: TESSALON PERLE100 MG PO (10:58)
[2018-12-28] MEDS ORDERED: MUCINEX600 MG PO (10:58)
[2018-12-28] MEDS ORDERED: ALBUTEROL SULF8.5 GM INH (10:59)
[2018-12-28 12:53] VITALS: BP 118/60
--- NOTE | 2018-12-28 13:30 | NUR ---
PT LEFT FLOOR VIA W/C. DC'd IJ- PT TOLERATED WELL. NO BLEEDING AT SITE. AT BEDSIDE. WENT OVER ALL D/C INSTRUCTIONS- PT STATES UNDERSTANDING. LEFT WITH ALL PERSONAL BELONGINGS
== END 2018-12-28 14:10 | disposition home health service (06) | DRG 329 ==
LOC: D.MS 18:44
PROVIDERS: Anesthesiology; Family Medicine; Internal Medicine Nephrology; Surgery; ADMIT Family Medicine; ATTEND Family Medicine
PROC: 0WQF0ZZ Repair Abdominal Wall, Open Approach (ICD-10-PCS; principal; 2018-12-22 09:15)
PROC: 0DT80ZZ Resection of Small Intestine, Open Approach (ICD-10-PCS; 2018-12-22 09:15)
DX: K43.6 Other and unspecified ventral hernia with obstruction, without gangrene (principal); E43 Unspecified severe protein-calorie malnutrition; J18.9 Pneumonia, unspecified organism; F17.213 Nicotine dependence, cigarettes, with withdrawal; D62 Acute posthemorrhagic anemia; J98.11 Atelectasis; K76.89 Other specified diseases of liver; E11.9 Type 2 diabetes mellitus without complications; E78.5 Hyperlipidemia, unspecified; I10 Essential (primary) hypertension; J44.9 Chronic obstructive pulmonary disease, unspecified; F32.9 Major depressive disorder, single episode, unspecified; E11.69 Type 2 diabetes mellitus with other specified complication

== ENCOUNTER 2019-01-25 13:16 | Inpatient (IN) | payer MEDICAID ==
[~2019-01-25] VITALS: Ht 154.9 cm; Wt 56.2 kg
[~2019-01-25 13:16] MED LIST changes: +ALBUTEROL SULF8.5 GM INH; +MUCINEX600 MG PO; +TESSALON PERLE100 MG PO
[2019-01-25 14:24] VITALS: BP 90/53; BMI 23.4
[2019-01-25] MEDS ORDERED: NEURONTIN 400400 MG PO (14:26)
[2019-01-25] MEDS ORDERED: ZOCOR20 MG PO (14:27)
[2019-01-25] MEDS ORDERED: EFFEXOR75 MG PO (14:28)
[2019-01-25 15:28] LABS: BASOPHILS 0.3 % (0-2); EOSINOPHILS 1.1 % (0-7); HEMATOCRIT 29.4 % (36.0-48.0); HEMOGLOBIN 9.6 g/dL (12-16); IMMATURE GRANULOCYTES 0.7 % (0-5); LYMPHOCYTES 17.3 % (15-50); MCHC 32.7 g/dL (31.0-37.0); MCV 82.6 fL (80.0-100.0); MEAN PLATELET VOLUME 8.3 fL (7.4-10.4); MONOCYTES 5.3 % (2-11); NEUTROPHILS 75.3 % (40-80); RBC 3.56 10x6/uL (4.00-5.40); RDW 16.3 % (11.5-14.5); WBC 15.6 10x3/uL (4.8-10.8)
[2019-01-25 15:35] LABS: ALBUMIN 2.3 g/dL (3.4-5.0); ANION GAP 16.2 mmol/L (8-16); BILIRUBIN - TOTAL 0.19 mg/dL (0.2-1.3); CALCIUM 9.1 mg/dL (8.5-10.1); PROTEIN - SERUM 7.1 g/dL (6.4-8.2)
[2019-01-25 15:38] LABS: POTASSIUM - SERUM 2.2 mmol/L (3.5-5.1)
[2019-01-25 15:54] LABS: PLATELET COUNT 663 10x3/uL (130-400)
[2019-01-25 16:24] VITALS: BP 110/56
--- NOTE | 2019-01-25 16:56 | NUR ---
CRITICAL K CALLED AT 2.2. NOTIFIED ANJELICA VICENTE WHO ADVISED ME TO CHECK HER MAG. ABDOUL ADVISED ME TO GIVE HER 40 MEQ PO AT THAT TIME AND 2 HR LATER WELL 40 MEQ IV PER PROTOCOL. RADHA
--- NOTE | 2019-01-25 18:51 | NUR ---
DRESSING CHANGED WITH 4X4S AND TAPE. TOLERATED WELL. REQUESTED AND RECEIVED NEW UNDERWEAR. CL IN REACH NO FURTHER NEEDS
[2019-01-25 19:48] LABS: APPEARANCE HAZY (CLEAR); BILIRUBIN NEGATIVE (NEGATIVE); COLOR YELLOW (YELLOW); GLUCOSE NEGATIVE (NEGATIVE); KETONE NEGATIVE (NEGATIVE); NITRITE POSITIVE (NEGATIVE); PROTEIN TRACE mg/dL (NEGATIVE); UROBILINOGEN NORMAL (NORMAL)
[2019-01-25 19:53] LABS: BACTERIA MANY /hpf (NONE SEEN); EPITHELIAL CELLS 0-5 /hpf (0-5); RED CELLS - URINE 0-5 /hpf (0-5); WHITE CELLS - URINE 25-50 /hpf (0-5)
[2019-01-25 21:15] VITALS: BP 139/61
[2019-01-26 01:38] VITALS: BP 124/53
[2019-01-26 05:11] VITALS: BP 120/54
[2019-01-26 05:39] LABS: BASOPHILS 0.2 % (0-2); EOSINOPHILS 1.4 % (0-7); HEMATOCRIT 26.4 % (36.0-48.0); HEMOGLOBIN 8.6 g/dL (12-16); IMMATURE GRANULOCYTES 0.8 % (0-5); LYMPHOCYTES 21.3 % (15-50); MCHC 32.6 g/dL (31.0-37.0); MEAN PLATELET VOLUME 8.1 fL (7.4-10.4); MONOCYTES 8.9 % (2-11); NEUTROPHILS 67.4 % (40-80); RBC 3.18 10x6/uL (4.00-5.40); RDW 16.6 % (11.5-14.5)
[2019-01-26 05:41] LABS: PLATELET COUNT 526 10x3/uL (130-400); WBC 11.1 10x3/uL (4.8-10.8)
[2019-01-26 06:21] LABS: CALCIUM 8.8 mg/dL (8.5-10.1); CARBON DIOXIDE 17.2 mmol/L (21.0-32.0); CHLORIDE - SERUM 111 mmol/L (98-107); CREATININE - SERUM 0.8 mg/dL (0.6-1.3); SODIUM 142 mmol/L (136-145); eGFR NON AFRICAN AMERICAN 81 mL/min (90-120)
[2019-01-26 06:22] LABS: CALC OSMOLALITY 290 mosm/kg (275-300); GLUCOSE 198 mg/dL (74-106); POTASSIUM - SERUM 3.1 mmol/L (3.5-5.1); UREA NITROGEN 18 mg/dL (7-18)
[2019-01-26 08:30] VITALS: BP 90/48
[2019-01-26 13:23] VITALS: Ht 154.9 cm; Wt 56.2 kg
[2019-01-26 13:23] LABS: ANION GAP 16.3 mmol/L (8-16); CALCIUM 8.8 mg/dL (8.5-10.1); CARBON DIOXIDE 18.9 mmol/L (21.0-32.0); CREATININE - SERUM 0.9 mg/dL (0.6-1.3); POTASSIUM - SERUM 3.2 mmol/L (3.5-5.1)
[2019-01-26 13:34] VITALS: BP 108/66
[2019-01-26 17:53] VITALS: BP 97/49
[2019-01-26 20:25] VITALS: BP 105/57
[2019-01-27 00:12] VITALS: BP 107/61
[2019-01-27 05:26] LABS: BASOPHILS 0.2 % (0-2); EOSINOPHILS 1.8 % (0-7); HEMATOCRIT 30.1 % (36.0-48.0); HEMOGLOBIN 9.1 g/dL (12-16); IMMATURE GRANULOCYTES 0.8 % (0-5); LYMPHOCYTES 26.1 % (15-50); MCH 25.5 pg (26.0-34.0); MCHC 30.2 g/dL (31.0-37.0); MCV 84.3 fL (80.0-100.0); MEAN PLATELET VOLUME 8.2 fL (7.4-10.4); MONOCYTES 7.9 % (2-11); NEUTROPHILS 63.2 % (40-80); PLATELET COUNT 497 10x3/uL (130-400); RBC 3.57 10x6/uL (4.00-5.40); RDW 16.7 % (11.5-14.5); WBC 9.6 10x3/uL (4.8-10.8)
[2019-01-27 05:30] LABS: CALCIUM 8.5 mg/dL (8.5-10.1); CARBON DIOXIDE 15.7 mmol/L (21.0-32.0); CHLORIDE - SERUM 113 mmol/L (98-107); POTASSIUM - SERUM 3.1 mmol/L (3.5-5.1); SODIUM 143 mmol/L (136-145)
[2019-01-27 05:31] LABS: CALC OSMOLALITY 286 mosm/kg (275-300); CREATININE - SERUM 0.6 mg/dL (0.6-1.3); GLUCOSE 147 mg/dL (74-106); UREA NITROGEN 9 mg/dL (7-18); eGFR NON AFRICAN AMERICAN > 90 mL/min (90-120)
[2019-01-27 06:35] VITALS: BP 112/54
[2019-01-27 08:34] VITALS: BP 102/63
[2019-01-27 12:48] VITALS: BP 96/56
[2019-01-27] MEDS ORDERED: LEVAQUIN750 MG PO (15:36)
--- NOTE | 2019-01-27 16:24 | NUR ---
REQUESTED ME CALL AND TELL HIM THAT SHE WAS BEING DISCHARGED. HE RESPONDED HE WOULD BE HERE AT 1900 TO PICK HER UP
--- NOTE | 2019-01-27 16:27 | MORECARE ---
CASE MANAGEMENT DISCHARGE SUMMARY PATIENT: AURELIA KAPLAN UNIT: [id number] ADM DATE: 01/25/19 AGE: 48 : 68 SEX: F ROOM/BED: D.2203 AUTHOR: CINTHIA,DOC PHYSICIAN: REFERRING PHYSICIAN: MARGO SCHREIBER MD DATE OF SERVICE: 01/27/19 Discharge Plan Patient Name: AURELIA KAPLAN Facility: [facility]:[place] : 1970 Planned Disposition: Home Anticipated Discharge Date: 01/27/19 Discharge Date: Expected LOS: 2 Initial Reviewer: [email or web address] Initial Review Date: 01/27/2019 Generated: 01/27/19 5:27 pm Comments DCP- Discharge Planning Updated by [id number]: Rhonda Andersen on 01/27/19 3:[address] Patient Name: AURELIA KAPLAN Admission Status: Elective Accout number: [id number] Admission Date: 01-25-2019 : 1970 Admission Diagnosis: Attending: MARGO SCHREIBER Current LOS: 2 Anticipated DC Date: 01-27-2019 Planned Disposition: Home [place] Insurance[place] PR[place] Discharge Planning Comments: CM met with patient to complete initial dc planning assessment. CM educated patient on the CM role and verbal consent given by patient to complete assessment. Patient lives at home with her . At discharge patient plans to return and feels this is a safe discharge. CM discussed availability of home health, rehab services, and medical equipment. Patient denied known discharge needs at this time. She does not have a glucometer, so Cat Martin wrote her a Rx per my request. I told her if insurance does not pay, she can get a relatively inexpensive one at [facility] or [facility]. CM will continue to follow and will assist as needed with dc plans/needs. Peanut Farmer: Rhonda Andersen DCPIA - Discharge Planning Initial Assessment Updated by [email or web address]: Rhonda Andersen on 01/27/19 4:22 pm * Is the patient Alert and Oriented? Yes * How many steps to enter\exit or inside your home? Ramp/0 * PCP Dr. Dhillon * Pharm[facility] * Preadmission Environment Home with Family * ADLs Independent * Equipment None * List name and contact numbers for known caregivers / representatives who currently or will assist patient after discharge: Javier - [facility] - [phone] * Verbal permission to speak to the caregivers and representatives has been obtained from the patient. Yes * Community resources currently utilized None * Additional services required to return to the preadmission environment? No * Can the patient safely return to the preadmission environment? Yes * Has this patient been hospitalized within the prior 30 days at any hospital? Yes Patient Name: AURELIA KAPLAN Page [id number] at 1627 All edits/amendments must be made on the electronic document DICTATION DATE: 01/27/191626 EPIC AMBULATORY ANALYSTS: JON 01/27/191626 RPT#: [id number] DC DATE: STATUS: ADM IN [facility] [address] [place] [address] END OF REPORT
--- NOTE | 2019-01-27 18:17 | NUR ---
IV THERAPY DISCONTINUED. DISCHARGE TEACHING GIVEN AND PATIENT VERBALIZED UNDERSTANDING. REFUSED WHEELCHAIR OUT. WALKED OUT WITH TO VEHICLE
--- NOTE | 2019-01-30 11:40 | MORECARE ---
CASE MANAGEMENT DISCHARGE SUMMARY PATIENT: AURELIA KAPLAN UNIT: [id number] ADM DATE: 01/25/19 AGE: 48 : 68 SEX: F ROOM/BED: D.2203 AUTHOR: CINTHIA,DOC PHYSICIAN: REFERRING PHYSICIAN: MARGO SCHREIBER MD DATE OF SERVICE: 01/30/19 Discharge Plan Patient Name: AURELIA KAPLAN Facility: [facility]:[place] : 1970 Planned Disposition: Home Anticipated Discharge Date: 01/27/19 Discharge Date: 01/27/2019 Expected LOS: 2 Initial Reviewer: [email or web address] Initial Review Date: 01/27/2019 Generated: 01/30/19 12:39 pm Comments DCP- Discharge Planning Updated by [email or web address]: Rhonda Andersen on 01/27/19 3:[address] Patient Name: AURELIA KAPLAN Admission Status: Elective Accout number: [id number] Admission Date: 01-25-2019 : 1970 Admission Diagnosis: Attending: MARGO SCHREIBER Current LOS: 2 Anticipated DC Date: 01-27-2019 Planned Disposition: Home Primary Insurance: [place] PRIVATE [employer] Discharge Planning Comments: CM met with patient to complete initial dc planning assessment. CM educated patient on the CM role and verbal consent given by patient to complete assessment. Patient lives at home with her . At discharge patient plans to return and feels this is a safe discharge. CM discussed availability of home health, rehab services, and medical equipment. Patient denied known discharge needs at this time. She does not have a glucometer, so Cat Martin wrote her a Rx per my request. I told her if insurance does not pay, she can get a relatively inexpensive one at [facility] or [facility]. CM will continue to follow and will assist as needed with dc plans/needs. Player Development Executive: Rhonda Andersen DCPIA - Discharge Planning Initial Assessment Updated by [email or web address]: Rhonda Andersen on 01/27/19 4:22 pm * Is the patient Alert and Oriented? Yes * How many steps to enter\exit or inside your home? Ramp/0 * PCP Dr. Dhillon * Pharm[facility] * Preadmission Environment Home with Family * ADLs Independent * Equipment None * List name and contact numbers for known caregivers / representatives who currently or will assist patient after discharge: [facility] - [phone] * Verbal permission to speak to the caregivers and representatives has been obtained from the patient. Yes * Community resources currently utilized None * Additional services required to return to the preadmission environment? No * Can the patient safely return to the preadmission environment? Yes * Has this patient been hospitalized within the prior 30 days at any hospital? Yes Last DP export: 01/27/19 3:27 pm Patient Name: AURELIA KAPLAN Page 92477 at 1140 All edits/amendments must be made on the electronic document DICTATION DATE: 01/30/19 1139 SCREEN MAKING TECHNICIAN: JON 01/30/19 1139 RPT#: [id number] DC DATE:01/27/19 STATUS: DIS IN [facility] [address] [place] [address] END OF REPORT
== END 2019-01-27 18:18 | disposition home or self-care (01) | DRG 919 ==
LOC: D.MS 13:16
PROVIDERS: Family Medicine; ADMIT Internal Medicine Nephrology; ATTEND Internal Medicine Nephrology
DX: T81.31XA Disruption of external operation (surgical) wound, not elsewhere classified, initial encounter (principal); E43 Unspecified severe protein-calorie malnutrition; T81.41XA Infection following a procedure, superficial incisional surgical site, initial encounter; F17.213 Nicotine dependence, cigarettes, with withdrawal; N39.0 Urinary tract infection, site not specified; Y83.9 Surgical procedure, unspecified as the cause of abnormal reaction of the patient, or of later complication, without mention of misadventure at the time of the procedure; D64.9 Anemia, unspecified; W19.XXXA Unspecified fall, initial encounter; E11.65 Type 2 diabetes mellitus with hyperglycemia; L40.9 Psoriasis, unspecified; Z68.25 Body mass index [BMI] 25.0-25.9, adult; I10 Essential (primary) hypertension

== ENCOUNTER 2019-01-29 13:28 | Inpatient (IN) | payer MEDICAID ==
[2019-01-29] VITALS (13 sets, daily range): BP systolic 111–151; BP diastolic 41–101; BMI 23.3
[~2019-01-29] VITALS: Ht 154.9 cm; Wt 55.8 kg
[~2019-01-29 13:28] MED LIST changes: +EFFEXOR75 MG PO; +LEVAQUIN750 MG PO; +NEURONTIN 400400 MG PO; +ZOCOR20 MG PO
[2019-01-29 14:14] LABS: HEMATOCRIT 28.1 % (36.0-48.0); HEMOGLOBIN 8.9 g/dL (12-16); MCHC 31.7 g/dL (31.0-37.0); MCV 85.2 fL (80.0-100.0); MEAN PLATELET VOLUME 8.1 fL (7.4-10.4); PLATELET COUNT 593 10x3/uL (130-400); RDW 17.6 % (11.5-14.5); WBC 11.5 10x3/uL (4.8-10.8)
[2019-01-29 14:26] LABS: ALBUMIN 2.3 g/dL (3.4-5.0); ALKALINE PHOSPHATASE 98 U/L (46-116); ALT (SGPT) 9 U/L (10-68); BILIRUBIN - TOTAL 0.22 mg/dL (0.2-1.3); CALC OSMOLALITY 297 mosm/kg (275-300); CALCIUM 8.9 mg/dL (8.5-10.1); CARBON DIOXIDE 11.4 mmol/L (21.0-32.0); CHLORIDE - SERUM 112 mmol/L (98-107); CREATININE - SERUM 0.7 mg/dL (0.6-1.3); PROTEIN - SERUM 5.9 g/dL (6.4-8.2); SODIUM 145 mmol/L (136-145); UREA NITROGEN 12 mg/dL (7-18); eGFR NON AFRICAN AMERICAN > 90 mL/min (90-120)
[2019-01-29 14:29] LABS: GLUCOSE 257 mg/dL (74-106)
[2019-01-29 14:36] LABS: KETONE - SERUM SMALL mg/dL (NEGATIVE)
--- NOTE | 2019-01-29 14:36 | NUR ---
URINE SENT TO THE LAB
[2019-01-29 14:43] LABS: APPEARANCE CLEAR (CLEAR); BILIRUBIN NEGATIVE (NEGATIVE); COLOR YELLOW (YELLOW); GLUCOSE 250 mg/dL (NEGATIVE); KETONE LARGE mg/dL (NEGATIVE); NITRITE NEGATIVE (NEGATIVE); PROTEIN 1+ mg/dL (NEGATIVE); SPECIFIC GRAVITY 1.015 (1.005-1.020); UROBILINOGEN NORMAL (NORMAL)
[2019-01-29 14:49] LABS: BACTERIA FEW /hpf (NONE SEEN); EPITHELIAL CELLS 0-5 /hpf (0-5); RED CELLS - URINE 0-5 /hpf (0-5); WHITE CELLS - URINE 0-5 /hpf (0-5)
[2019-01-29 15:01] LABS: LYMPHOCYTES 8 % (15-50); NEUTROPHILS 89 % (40-80); PLATELET ESTIMATE INCREASED
[2019-01-29 15:02] LABS: TEAR DROP CELLS OCC
--- NOTE | 2019-01-29 17:40 | NUR ---
RECEIVED FROM ER PER WHEELCHAIR, AWAKE AND ALERT AMBULATED TO BED. REM[facility]ED [facility] GOWN APPLIED. IV LEFT AC INFUSING WITH 2ND BAG OF NS AT 999CC HOUR AND INSULIN GTT AT 4 UNIT HOUR. IV WITHOUT REDNESS OR SWELLING. STATES SHE HAS BEEN NAUSEA AND VOMITTING SINCE WEDNESDAY NIGHT. UNABLE TO HOLD HER MEDS DOWN. REQUESTING PAIN MEDS.
[2019-01-29 17:44] LABS: CALCIUM 8.8 mg/dL (8.5-10.1); CARBON DIOXIDE 12.7 mmol/L (21.0-32.0); CHLORIDE - SERUM 114 mmol/L (98-107); CREATININE - SERUM 0.7 mg/dL (0.6-1.3); MAGNESIUM - SERUM 1.8 mg/dL (1.8-2.4); SODIUM 145 mmol/L (136-145); UREA NITROGEN 12 mg/dL (7-18); eGFR NON AFRICAN AMERICAN > 90 mL/min (90-120)
[2019-01-29 17:47] LABS: CALC OSMOLALITY 294 mosm/kg (275-300); GLUCOSE 205 mg/dL (74-106)
[2019-01-29 17:48] LABS: POTASSIUM - SERUM 2.9 mmol/L (3.5-5.1)
--- NOTE | 2019-01-29 19:03 | NUR ---
ACCHECK 122. INSULIN GTT DECREASED TO 1.8 UNITS HOUR. IV FLUIDS TO BE CHANGED TO D51/2 20 KCL AT 100ML HOUR. LEVAQUIN INFUSING AT THIS TIME
--- NOTE | 2019-01-29 19:30 | NUR ---
ADMISSIONS ASSESSMENT COMPLETED, PT EXPERIENCING NAUSEA AND VOMITING SINUS RHYTHM IRREGULAR, POTASSIUM REPLACEMENT BEING GIVEN. PATIENT DENIES NEEDS AT THIS TIME. CPOC
--- NOTE | 2019-01-29 21:02 | NUR ---
PT OUT OF BED TO BEDSIDE URINE NOTED - STEADY ON FEET, REQUESTING PRN MORPHINE FOR PAIN, SEE EMAR FOR ADMINISTRATION AND PAIN SCALE.
--- NOTE | 2019-01-29 21:45 | NUR ---
HS MEDICATIONS RECEIVED PATIENT DENIES FURTHER NEEDS VSS CPOC
--- NOTE | 2019-01-29 23:15 | NUR ---
REASSESSMENT COMPLETED SEE FLOWSHEET
[2019-01-29 23:16] LABS: CALCIUM 8.3 mg/dL (8.5-10.1); CARBON DIOXIDE 15.5 mmol/L (21.0-32.0); CREATININE - SERUM 0.7 mg/dL (0.6-1.3); MAGNESIUM - SERUM 1.5 mg/dL (1.8-2.4); SODIUM 147 mmol/L (136-145); UREA NITROGEN 10 mg/dL (7-18); eGFR NON AFRICAN AMERICAN > 90 mL/min (90-120)
[2019-01-29 23:17] LABS: CALC OSMOLALITY 291 mosm/kg (275-300); CHLORIDE - SERUM 119 mmol/L (98-107); GLUCOSE 112 mg/dL (74-106)
--- NOTE | 2019-01-29 23:32 | NUR ---
PAGED BULMARO GARCIA [employer]IA [employer] TO REPORT CRITICAL LAB RESULT
--- NOTE | 2019-01-29 23:35 | NUR ---
JOSE CRUZ RETURNED CALL CRITICAL LAB VALUE REPORTED, CRITICAL LAB SHEET COMPLETED AND PLACED INTO CHART - NO NEW ORDERS RECEIVED
[2019-01-30] VITALS (19 sets, daily range): BP systolic 107–141; BP diastolic 54–80; Ht 154.9 cm; Wt 55.8 kg
--- NOTE | 2019-01-30 01:20 | NUR ---
PATIENT RESTING COMFORTABLY REQUESTING PRN PAIN MEDICATION - SEE EMAR FOR ADMINISTRATION
--- NOTE | 2019-01-30 04:38 | NUR ---
PT REQUESTING PRN PAIN MEDICATION - SEE EMAR FOR ADMINISTRATION
[2019-01-30 04:49] LABS: BASOPHILS 0.1 % (0-2); EOSINOPHILS 0.3 % (0-7); HEMOGLOBIN 7.8 g/dL (12-16); IMMATURE GRANULOCYTES 0.7 % (0-5); LYMPHOCYTES 24.4 % (15-50); MCH 26.3 pg (26.0-34.0); MCHC 31.2 g/dL (31.0-37.0); MCV 84.2 fL (80.0-100.0); MEAN PLATELET VOLUME 7.9 fL (7.4-10.4); NEUTROPHILS 67.5 % (40-80); PLATELET COUNT 516 10x3/uL (130-400); RBC 2.97 10x6/uL (4.00-5.40); RDW 17.6 % (11.5-14.5); WBC 9.8 10x3/uL (4.8-10.8)
[2019-01-30 05:05] LABS: CALC OSMOLALITY 292 mosm/kg (275-300); CALCIUM 8.7 mg/dL (8.5-10.1); CARBON DIOXIDE 14.8 mmol/L (21.0-32.0); CREATININE - SERUM 0.7 mg/dL (0.6-1.3); GLUCOSE 101 mg/dL (74-106); MAGNESIUM - SERUM 1.6 mg/dL (1.8-2.4); POTASSIUM - SERUM 2.8 mmol/L (3.5-5.1); SODIUM 148 mmol/L (136-145); UREA NITROGEN 9 mg/dL (7-18); eGFR NON AFRICAN AMERICAN > 90 mL/min (90-120)
[2019-01-30 05:06] LABS: CHLORIDE - SERUM 119 mmol/L (98-107)
--- NOTE | 2019-01-30 07:00 | NUR ---
REPORT RECIEVED FORM DEJAN GERONIMO. PATIENT AWAKE AND ALERT. LUNGS CTA BILATERALLY. REPLACING K+ PER PROTOCOL. VSS. CALL LIGHT WITHIN REACH. WILL CONTINUE TO MONITOR.
--- NOTE | 2019-01-30 09:50 | NUR ---
PATIENT RESTING. FAMILY AT BESIDE. VSS. FOLLOWING INSULIN PROTOCOL. WILL CONTINUE TO MONITOR.
--- NOTE | 2019-01-30 11:30 | NUR ---
DR ALVARADO AT BEDSIDE. UPDATE GIVEN.
[2019-01-30 11:47] LABS: CALC OSMOLALITY 287 mosm/kg (275-300); CALCIUM 8.9 mg/dL (8.5-10.1); CARBON DIOXIDE 15.4 mmol/L (21.0-32.0); CREATININE - SERUM 0.6 mg/dL (0.6-1.3); GLUCOSE 123 mg/dL (74-106); MAGNESIUM - SERUM 1.6 mg/dL (1.8-2.4); SODIUM 145 mmol/L (136-145); UREA NITROGEN 8 mg/dL (7-18); eGFR NON AFRICAN AMERICAN > 90 mL/min (90-120)
--- NOTE | 2019-01-30 11:54 | NUR ---
PAGED DR BURRELL
[2019-01-30 11:58] LABS: CHLORIDE - SERUM 117 mmol/L (98-107)
--- NOTE | 2019-01-30 13:00 | NUR ---
PATIENT COMPLAINS OF PAIN. VSS. WILL CONTINUE TO MONITOR
--- NOTE | 2019-01-30 14:59 | NUR ---
report given to elenita delgado.
--- NOTE | 2019-01-30 15:35 | NUR ---
CALLED ICING MACHINE OPERATOR LISA, AND INFORMED HER THAT I NEED HEART MONITOR FOR PT. NONE AVAILABLE AT THIS TIME, WILL BE PLACED ON WAITING LIST.
--- NOTE | 2019-01-30 15:38 | NUR ---
RECEIVED PT TO ROOM 1205 VIA WHEELCHAIR, ACCOMPANIED BY . PT A/O X4, RESP EVEN AND NONLABORED ON RA. PT DENIES ANY NEEDS AT THIS TIME. WANTS TO GO OUTSIDE, INFORMED PT THAT PER POLICY SHE IS NOT ALLOWED TO GO OUTSIDE IF SHE IS GETTING PAIN MEDICATION. WILL ASSESS PT AND CONTINUE PLAN OF CARE.
--- NOTE | 2019-01-30 19:00 | NUR ---
PATIENT RESTING IN BED WITH NO S/S OF DISTRESS. VERIFIED BLOOD WITH JUANPABLO LEPE. PATIENT DENIES NEEDS AT THIS TIME. VSS. ENCOURAGED THE PATIENT TO CALL IF SHE HAS NEEDS. WILL CONTINUE TO MONITOR.
--- NOTE | 2019-01-30 19:02 | NUR ---
FIRST UNIT OF PRBCS STARTED TO INFUSE AT 75CC/HR TO LT AC. VITAL SIGNS STABLE. PT DENIES ANY NEEDS AT THIS TIME. WILL CONTINUE TO MONITOR.
[2019-01-31 01:55] VITALS: BP 124/65
[2019-01-31 04:00] VITALS: BP 163/70
[2019-01-31 06:44] LABS: CALC OSMOLALITY 282 mosm/kg (275-300); CALCIUM 9.9 mg/dL (8.5-10.1); CARBON DIOXIDE 14.5 mmol/L (21.0-32.0); CHLORIDE - SERUM 113 mmol/L (98-107); CREATININE - SERUM 0.6 mg/dL (0.6-1.3); GLUCOSE 100 mg/dL (74-106); POTASSIUM - SERUM 3.3 mmol/L (3.5-5.1); SODIUM 143 mmol/L (136-145); UREA NITROGEN 7 mg/dL (7-18); eGFR NON AFRICAN AMERICAN > 90 mL/min (90-120)
[2019-01-31 06:56] LABS: BASOPHILS 0.3 % (0-2); EOSINOPHILS 1.1 % (0-7); IMMATURE GRANULOCYTES 1.3 % (0-5); LYMPHOCYTES 27.8 % (15-50); MCH 27.9 pg (26.0-34.0); MCHC 32.7 g/dL (31.0-37.0); MCV 85.3 fL (80.0-100.0); MEAN PLATELET VOLUME 8.7 fL (7.4-10.4); MONOCYTES 7.4 % (2-11); NEUTROPHILS 62.1 % (40-80); PLATELET COUNT 511 10x3/uL (130-400); RDW 16.7 % (11.5-14.5); WBC 10.2 10x3/uL (4.8-10.8)
[2019-01-31 07:00] LABS: HEMOGLOBIN 12.1 g/dL (12-16); RBC 4.34 10x6/uL (4.00-5.40)
--- NOTE | 2019-01-31 07:10 | NUR ---
REPORT RECEIVED FROM DISPATCHER RELAY AND PATIENT CARE ASSUMED. PATIENT IS AWAKE, ALERT AND ORIENTED X 4 AND SITTING UP IN BS CHAIR. PATIENT IS STABLE AND VSS. PATIENT DENIES ANY NEEDS OR PAIN. PATIENT HAS NO IV ACCESS BUT STATES SHE MAY BE GOING HOME TODAY. PATIENT REQUESTS NOT TO IV UNTIL FINDS OUT IF SHE GOING HOME. WILL COMTINUE WITH PLAN OF CARE. CALL LIGHT IN REACH.
[2019-01-31 07:30] VITALS: BP 139/64
--- NOTE | 2019-01-31 08:15 | NUR ---
PATIENT AMBULATING IN HALLWAY. PATIENT TOLERATING WELL.
--- NOTE | 2019-01-31 11:09 | NUR ---
PATIENT REQUEST TO DC CLEAR LIQUID DIET. SPOKE WITH CHRIST CHAMBERLAIN . RECEIVED NEW ORDER FOR REGULAR DIET.
--- NOTE | 2019-01-31 13:30 | NUR ---
ORDERS RECEIVED FOR DC. PATIENT IS STABLE AND VSS. VERBAL AND WRIITEN INSTRUCTONS GIVEN . PATIENT VERBALIZED UNDERSTANDING AND SIGNED PAPERWORK. PATIENT STATES THAT SHE WILL NOT HAVE A RIDE UNTIL 400 PM. WILL CONTINUE TO [facility].
--- NOTE | 2019-01-31 16:38 | NUR ---
PATIENT IS STABLE AND VSS. PATIENT TO FRONT DOOR VIA AND HOSPITAL PERSONNEL. PATIENT DC TO HOME CARE VIA PRIVATE VEHICLE DRIVEN BY FAMILY MEMBER.
--- NOTE | 2019-01-31 19:21 | MORECARE ---
CASE MANAGEMENT DISCHARGE SUMMARY PATIENT: AURELIA KAPLAN UNIT: [id number] ADM DATE: 01/29/19 AGE: 48 : [birth year] SEX: F ROOM/BED: D.1205 AUTHOR: LAYO VICENTE PHYSICIAN: REFERRING PHYSICIAN: MARGO SCHREIBER MD DATE OF SERVICE: 01/31/19 Discharge Plan Patient Name: AURELIA KAPLAN [facility] : 1970 Planned Disposition: Home Anticipated Discharge Date: Discharge Date: 01/31/2019 Expected LOS: Initial Reviewer: [email or web address] Initial Review Date: 01/31/2019 Generated: 01/31/19 8:21 pm DCPIA - Discharge Planning Initial Assessment Updated by [email or web address]: Greta Lees on 01/31/19 7:21 pm * Is the patient Alert and Oriented? Yes * How many steps to enter\exit or inside your home? ramp * PCP CEASRA * [facility] * Preadmission Environment Home with Family * ADLs Independent * Equipment None * List name and contact numbers for known caregivers / representatives who currently or will assist patient after discharge: ALTON KAPLAN - SPOUSE - [phone] * Verbal permission to speak to the caregivers and representatives has been obtained from the patient. Yes * Community resources currently utilized None * Additional services required to return to the preadmission environment? No * Can the patient safely return to the preadmission environment? Yes * Has this patient been hospitalized within the prior 30 days at any hospital? Yes Patient Name: AURELIA KAPLAN Page 43134 at 1921 All edits/amendments must be made on the electronic document DICTATION DATE: 01/31/191920 PLANT PHYSIOLOGIST: JON 01/31/191920 RPT#: [id number] DC DATE:01/31/19 STATUS: DIS IN [facility] [address] [place] [address] END OF REPORT
--- NOTE | 2019-01-31 19:28 | MORECARE ---
CASE MANAGEMENT DISCHARGE SUMMARY PATIENT: AURELIA KAPLAN UNIT: [id number] ADM DATE: 01/29/19 AGE: 48 : [birth year] SEX: F ROOM/BED: D.1205 AUTHOR: CINTHIA,DOC PHYSICIAN: REFERRING PHYSICIAN: MARGO SCHREIBER MD DATE OF SERVICE: 01/31/19 Discharge Plan Patient Name: AURELIA KAPLAN Facility: [facility]:[place] : 1970 Planned Disposition: Home Anticipated Discharge Date: Discharge Date: 01/31/2019 Expected LOS: Initial Reviewer: [email or web address] Initial Review Date: 01/31/2019 Generated: 01/31/19 8:28 pm Comments DCP- Discharge Planning Updated by [email or web address]: Greta Lees on 01/31/19 6:[address] Patient Name: AURELIA KAPLAN Admission Status: ER Accout number: [id number] Admission Date: 01-29-2019 : 1970 Admission Diagnosis: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 Patient lives at home with her and plans to return there upon discharge. Patient feels this would be a safe discharge. CM discussed availability / needs of home health and medical equipment. Patient denies any discharge needs at this time. Patient states she will have her drive her home upon discharge. CM will continue to follow and assist as needed with discharge planning / needs. Citizenship Instructor: Greta Lees DCPIA - Discharge Planning Initial Assessment Updated by [email or web address]: Greta Lees on 01/31/19 7:21 pm * Is the patient Alert and Oriented? Yes * How many steps to enter\exit or inside your home? ramp * PCP CEASAR * [facility] * Preadmission Environment Home with Family * ADLs Independent * Equipment None * List name and contact numbers for known caregivers / representatives who currently or will assist patient after discharge: ALTON KAPLAN - SPOUSE - [phone] * Verbal permission to speak to the caregivers and representatives has been obtained from the patient. Yes * Community resources currently utilized None * Additional services required to return to the preadmission environment? No * Can the patient safely return to the preadmission environment? Yes * Has this patient been hospitalized within the prior 30 days at any hospital? Yes Last DP export: 01/31/19 6:21 pm Patient Name: AURELIA KAPLAN Page 89527 at 1928 All edits/amendments must be made on the electronic document DICTATION DATE: 01/31/191927 FABRIC STRETCHER: JON 01/31/191927 RPT#: [id number] DC DATE:01/31/19 STATUS: DIS IN [facility] [address] [place] [address] END OF REPORT
--- NOTE | 2019-02-01 19:51 | MORECARE ---
CASE MANAGEMENT DISCHARGE SUMMARY PATIENT: AURELIA KAPLAN UNIT: [id number] ADM DATE: 01/29/19 AGE: 48 : 68 SEX: F ROOM/BED: D.1205 AUTHOR: CINTHIA,DOC PHYSICIAN: REFERRING PHYSICIAN: MARGO SCHREIBER MD DATE OF SERVICE: 02/01/19 Discharge Plan Patient Name: AURELIA KAPLAN Facility: [facility]:[place] : 1970 Planned Disposition: Home Anticipated Discharge Date: Discharge Date: 01/31/2019 Expected LOS: Initial Reviewer: [email or web address] Initial Review Date: 01/31/2019 Generated: 02/01/19 8:51 pm Comments DCP- Discharge Planning Updated by [email or web address]: Greta Lees on 01/31/19 6:[address] Patient Name: AURELIA AKPLAN Admission Status: ER Accout number: [id number] Admission Date: 01-29-2019 : 1970 Admission Diagnosis: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 Patient lives at home with her and plans to return there upon discharge. Patient feels this would be a safe discharge. CM discussed availability / needs of home health and medical equipment. Patient denies any discharge needs at this time. Patient states she will have her drive her home upon discharge. CM will continue to follow and assist as needed with discharge planning / needs. Neck Pinner: Greta Lees DCPIA - Discharge Planning Initial Assessment Updated by [email or web address]: Greta Lees on 01/31/19 7:21 pm * Is the patient Alert and Oriented? Yes * How many steps to enter\exit or inside your home? ramp * PCP CEASAR * [facility] * Preadmission Environment Home with Family * ADLs Independent * Equipment None * List name and contact numbers for known caregivers / representatives who currently or will assist patient after discharge: ALTON KAPLAN - SPOUSE - [phone] * Verbal permission to speak to the caregivers and representatives has been obtained from the patient. Yes * Community resources currently utilized None * Additional services required to return to the preadmission environment? No * Can the patient safely return to the preadmission environment? Yes * Has this patient been hospitalized within the prior 30 days at any hospital? Yes Last DP export: 01/31/19 6:28 pm Patient Name: AURELIA KAPLAN Page 22759 at 1950 All edits/amendments must be made on the electronic document DICTATION DATE: 02/01/191950 BOOTMAKER HAND: JON 02/01/191950 RPT#: [id number] DC DATE:01/31/19 STATUS: DIS IN [facility] [address] [place] [address] END OF REPORT
== END 2019-01-31 16:40 | disposition home or self-care (01) | DRG 637 ==
LOC: D.ER 13:28 → D.ICU 17:04 → D.M3 17:04
PROVIDERS: Emergency Medicine; ADMIT Internal Medicine Nephrology; ATTEND Internal Medicine Nephrology
DX: E11.10 Type 2 diabetes mellitus with ketoacidosis without coma (principal); E43 Unspecified severe protein-calorie malnutrition; T81.31XA Disruption of external operation (surgical) wound, not elsewhere classified, initial encounter; F17.213 Nicotine dependence, cigarettes, with withdrawal; N39.0 Urinary tract infection, site not specified; L76.34 Postprocedural seroma of skin and subcutaneous tissue following other procedure; Y83.9 Surgical procedure, unspecified as the cause of abnormal reaction of the patient, or of later complication, without mention of misadventure at the time of the procedure; W19.XXXA Unspecified fall, initial encounter; D64.9 Anemia, unspecified; R16.0 Hepatomegaly, not elsewhere classified; L40.9 Psoriasis, unspecified; J44.9 Chronic obstructive pulmonary disease, unspecified; Z68.26 Body mass index [BMI] 26.0-26.9, adult; I11.0 Hypertensive heart disease with heart failure; I50.9 Heart failure, unspecified

== ENCOUNTER 2019-02-15 15:51 | Inpatient (IN) | payer MEDICAID ==
[~2019-02-15] VITALS: Ht 154.9 cm; Wt 56.8 kg
[2019-02-15] MEDS ORDERED: GLUCOPHAGE500 MG PO (16:05)
[2019-02-15 16:46] LABS: BASOPHILS 0.2 % (0-2); HEMATOCRIT 38.9 % (36.0-48.0); HEMOGLOBIN 12.8 g/dL (12-16); IMMATURE GRANULOCYTES 0.3 % (0-5); LYMPHOCYTES 14.4 % (15-50); MCHC 32.9 g/dL (31.0-37.0); MCV 85.1 fL (80.0-100.0); MEAN PLATELET VOLUME 8.5 fL (7.4-10.4); MONOCYTES 6.4 % (2-11); NEUTROPHILS 76.7 % (40-80); RBC 4.57 10x6/uL (4.00-5.40); RDW 18.5 % (11.5-14.5)
[2019-02-15 17:01] LABS: INR 0.94 (0.85-1.17); PROTIME 12.1 SECONDS (11.6-15.0)
[2019-02-15 17:02] LABS: APTT 35.4 SECONDS (22.8-39.4)
[2019-02-15 17:07] LABS: ALBUMIN 2.6 g/dL (3.4-5.0); ALKALINE PHOSPHATASE 115 U/L (46-116); ALT (SGPT) 12 U/L (10-68); CALC OSMOLALITY 288 mosm/kg (275-300); CALCIUM 8.9 mg/dL (8.5-10.1); CHLORIDE - SERUM 113 mmol/L (98-107); CREATININE - SERUM 0.6 mg/dL (0.6-1.3); GLUCOSE 104 mg/dL (74-106); PLATELET COUNT 269 10x3/uL (130-400); PROTEIN - SERUM 6.5 g/dL (6.4-8.2); SODIUM 146 mmol/L (136-145); UREA NITROGEN 7 mg/dL (7-18); eGFR NON AFRICAN AMERICAN > 90 mL/min (90-120)
[2019-02-15 17:19] LABS: CKMB 1.4 U/L (0.0-3.6); CREATINE KINASE 52 UL (21-215); PRO BNP 543 pg/mL (0-125)
[2019-02-15 17:24] LABS: TROPONIN-I < 0.017 ng/mL (0.000-0.060)
--- NOTE | 2019-02-15 19:01 | NUR ---
HAND OFF REPORT GIVEN TO JUANPABLO ALADNA
[2019-02-15 19:39] VITALS: BP 141/81
--- NOTE | 2019-02-15 20:05 | NUR ---
ROCEPHIN INFUSION COMPLETE AT THIS TIME.
--- NOTE | 2019-02-15 22:52 | NUR ---
PT LEFT FLOOR AT THIS TIME.
[2019-02-15 23:00] VITALS: BP 140/80
--- NOTE | 2019-02-15 23:04 | NUR ---
FOUND PT SITTING IN ER ENTRANCE. ESCORTED PT BACK TO ROOM. EDUCATED PT ON DANGERS OF LEAVING ROOM WITH NO SUPERVISION.
[2019-02-15 23:54] VITALS: BP 146/83; BMI 24.8
[2019-02-16 03:00] VITALS: BP 130/75
[2019-02-16 05:34] LABS: BASOPHILS 0 % (0-2); EOSINOPHILS 0 % (0-7); HEMATOCRIT 37.4 % (36.0-48.0); HEMOGLOBIN 12.4 g/dL (12-16); IMMATURE GRANULOCYTES 0.2 % (0-5); LYMPHOCYTES 9.8 % (15-50); MCH 28.1 pg (26.0-34.0); MCHC 33.2 g/dL (31.0-37.0); MCV 84.8 fL (80.0-100.0); MEAN PLATELET VOLUME 9.1 fL (7.4-10.4); MONOCYTES 0.7 % (2-11); NEUTROPHILS 89.3 % (40-80); PLATELET COUNT 299 10x3/uL (130-400); RBC 4.41 10x6/uL (4.00-5.40); RDW 18.5 % (11.5-14.5)
[2019-02-16 05:44] LABS: CARBON DIOXIDE 22.5 mmol/L (21.0-32.0); CHLORIDE - SERUM 111 mmol/L (98-107); CREATININE - SERUM 0.6 mg/dL (0.6-1.3); MAGNESIUM - SERUM 1.8 mg/dL (1.8-2.4); PHOSPHOROUS 2.9 mg/dL (2.5-4.9); SODIUM 144 mmol/L (136-145); eGFR NON AFRICAN AMERICAN > 90 mL/min (90-120)
[2019-02-16 05:49] LABS: WBC 5.7 10x3/uL (4.8-10.8)
[2019-02-16 05:55] LABS: CALC OSMOLALITY 295 mosm/kg (275-300); GLUCOSE 275 mg/dL (74-106); UREA NITROGEN 10 mg/dL (7-18)
--- NOTE | 2019-02-16 07:56 | NUR ---
PATIENT ASLEEP DURING MORNING ROUNDS. RIGHT HAND IV IS SALINE LOCKED. CALL LIGHT IS IN REACH AND BED IS IN LOW POSITION . WILL ASSESS AT A LATER TIME.
[2019-02-16 08:55] VITALS: BP 166/76
[2019-02-16 10:59] VITALS: Ht 154.9 cm; Wt 56.8 kg
[2019-02-16 12:31] VITALS: BP 161/84
[2019-02-16 20:00] VITALS: BP 163/80
[2019-02-17] VITALS: BP 141/74
[2019-02-17 04:00] VITALS: BP 143/79
[2019-02-17 05:29] LABS: BASOPHILS 0.1 % (0-2); EOSINOPHILS 0 % (0-7); HEMATOCRIT 37.1 % (36.0-48.0); HEMOGLOBIN 12.2 g/dL (12-16); IMMATURE GRANULOCYTES 0.2 % (0-5); LYMPHOCYTES 6.4 % (15-50); MCH 27.8 pg (26.0-34.0); MCHC 32.9 g/dL (31.0-37.0); MCV 84.5 fL (80.0-100.0); MEAN PLATELET VOLUME 9.3 fL (7.4-10.4); MONOCYTES 2.5 % (2-11); NEUTROPHILS 90.8 % (40-80); PLATELET COUNT 323 10x3/uL (130-400); RBC 4.39 10x6/uL (4.00-5.40); RDW 18.3 % (11.5-14.5); WBC 18.2 10x3/uL (4.8-10.8)
[2019-02-17 05:57] LABS: CALC OSMOLALITY 286 mosm/kg (275-300); CALCIUM 9.3 mg/dL (8.5-10.1); CARBON DIOXIDE 19.9 mmol/L (21.0-32.0); CHLORIDE - SERUM 106 mmol/L (98-107); CREATININE - SERUM 0.7 mg/dL (0.6-1.3); GLUCOSE 266 mg/dL (74-106); PHOSPHOROUS 3.2 mg/dL (2.5-4.9); POTASSIUM - SERUM 3.1 mmol/L (3.5-5.1); SODIUM 139 mmol/L (136-145); UREA NITROGEN 12 mg/dL (7-18); eGFR NON AFRICAN AMERICAN > 90 mL/min (90-120)
--- NOTE | 2019-02-17 07:10 | NUR ---
REPORT RECEIVED FROM CORRUGATOR HELPER AND PATIENT CARE ASSUMED. PATIENT SITTING UP IN BED WATCHING TV. PATIENT IS STABLE AND VSS. PATIENT DENIES ANY NEEDS OR PAIN. WILL CONTINUE WITH PLAN OF CARE. SR UP X 2 BED IN LOW POSITION AND CALL LIGHT IN REACH.
[2019-02-17 08:00] VITALS: BP 133/72
[2019-02-17 11:00] VITALS: BP 159/76
--- NOTE | 2019-02-17 12:52 | NUR ---
PATIENT IS STABLE AND VSS. LT HAND IV INFILLTRATED. IV DCD. PATIENT STATES THAT SHE IS GOING HOME TOMORROW AND DOES NOT WANT TO BE STUCK ANYMORE AND REFUSES NEW IV ACCESS.WILL CONTINUE TO MONITOR.
[2019-02-17 16:23] VITALS: BP 147/63
--- NOTE | 2019-02-17 19:33 | NUR ---
PT REQUESTED TO LEAVE FLOOR STATED THE DOCTOR SAID SHE COULD. PT LEFT FLOOR AT THIS TIME
[2019-02-17 20:00] VITALS: BP 156/77
[2019-02-18] VITALS: BP 131/75
[2019-02-18 04:00] VITALS: BP 137/73
[2019-02-18 04:58] LABS: BASOPHILS 0.1 % (0-2); EOSINOPHILS 0.1 % (0-7); HEMATOCRIT 35.6 % (36.0-48.0); HEMOGLOBIN 11.5 g/dL (12-16); IMMATURE GRANULOCYTES 0.4 % (0-5); LYMPHOCYTES 14.8 % (15-50); MCH 27.6 pg (26.0-34.0); MCHC 32.3 g/dL (31.0-37.0); MCV 85.6 fL (80.0-100.0); MEAN PLATELET VOLUME 8.7 fL (7.4-10.4); MONOCYTES 6.8 % (2-11); NEUTROPHILS 77.8 % (40-80); PLATELET COUNT 321 10x3/uL (130-400); RBC 4.16 10x6/uL (4.00-5.40); RDW 18.7 % (11.5-14.5); WBC 15.9 10x3/uL (4.8-10.8)
[2019-02-18 06:03] LABS: CALCIUM 8.5 mg/dL (8.5-10.1); CARBON DIOXIDE 21.5 mmol/L (21.0-32.0); MAGNESIUM - SERUM 2.1 mg/dL (1.8-2.4); POTASSIUM - SERUM 3.5 mmol/L (3.5-5.1)
[2019-02-18 06:15] LABS: CREATININE - SERUM 1.1 mg/dL (0.6-1.3); PHOSPHOROUS 4.9 mg/dL (2.5-4.9)
--- NOTE | 2019-02-18 07:10 | NUR ---
REPORT RECEIVED FROM LINK AND LINK KNITTING MACHINE OPERATOR AND PATIENT CARE ASSUMED. PATIENT AWAKE, ALERT AND ORIENTED X 4. PATIENT SITTING UP IN BS CHAIR. PATIENT IS STABLE AND VSS. PATIENT DENIES ANY NEEDS OR PAIN. WILL CONTINUE [facility] PLAN OF CARE. CALL LIGHT IN REACH.
[2019-02-18] MEDS ORDERED: PREDNISONE10 MG PO (11:31)
--- NOTE | 2019-02-18 12:35 | NUR ---
SPOKE WITH PT RE PRESCRIPTION SENT TO [facility]. I ASKED IT SHE WOULD BE ABLE TO GET OVER THE WEEKEND AND SHE SAID SHE WOULD. SHE WOULD CALL THE PHARMACY AND BE ABLE TO ARRANGE TO RECEIVE.
[2019-02-18 13:08] VITALS: BP 157/87
--- NOTE | 2019-02-18 13:34 | NUR ---
PATIENT IS STABLE AND VSS. PATIENT DENIES ANY NEEDS OR PAIN. ORDERS RECEIVED FOR DC. WRITTEN AND VERBAL DISCHARGE INSTRUCTIONS GIVEN TO PATIENT. PATIENT VERBALIZED UNDERSTANDING AND SIGNED PAPERWORK. PATIENT TO FRONT DOOR VIA WC AND HOSPITAL PERSONNEL TO FRONT DOOR AND PRIVATE VEHICLE DRIVEN BY FAMILY MEMBER.
--- NOTE | 2019-02-20 08:47 | MORECARE ---
CASE MANAGEMENT DISCHARGE SUMMARY PATIENT: AURELIA KAPLAN UNIT: [id number] ADM DATE: 02/15/19 AGE: 48 : 68 SEX: F ROOM/BED: D.2103 AUTHOR: LAYO VICENTE PHYSICIAN: REFERRING PHYSICIAN: DENNIS MCDONOUGH DO DATE OF SERVICE: 02/20/19 Discharge Plan Patient Name: AURELIA KAPLAN Facility: [facility]:[place] : 1970 Planned Disposition: Home Anticipated Discharge Date: 02/18/19 Discharge Date: 02/18/2019 Expected LOS: 3 Initial Reviewer: [email or web address] Initial Review Date: 02/20/2019 Generated: 02/20/19 9:47 am Patient Name: AURELIA KAPLAN Page 50680 at 0847 All edits/amendments must be made on the electronic document DICTATION DATE: 02/20/19 0847 SET BUILDER: JON 02/20/19 0847 RPT#: [id number] DC DATE:02/18/19 STATUS: DIS IN [facility] [address] [place] [address] END OF REPORT
== END 2019-02-18 13:36 | disposition home or self-care (01) | DRG 202 ==
LOC: D.ER 15:51 → D.M2 18:32
PROVIDERS: Family Medicine; ADMIT Family Medicine; ATTEND Family Medicine
DX: J20.9 Acute bronchitis, unspecified (principal); J44.1 Chronic obstructive pulmonary disease with (acute) exacerbation; F17.213 Nicotine dependence, cigarettes, with withdrawal; J44.0 Chronic obstructive pulmonary disease with (acute) lower respiratory infection; E11.9 Type 2 diabetes mellitus without complications; K21.9 Gastro-esophageal reflux disease without esophagitis; I11.0 Hypertensive heart disease with heart failure; I50.9 Heart failure, unspecified; M32.9 Systemic lupus erythematosus, unspecified

== ENCOUNTER 2020-11-27 14:22 | Emergency (ER) | payer MEDICAID ==
[~2020-11-27] VITALS: Ht 154.9 cm; Wt 56.8 kg
[~2020-11-27 14:22] MED LIST changes: +GLUCOPHAGE500 MG PO; +PREDNISONE10 MG PO
[2020-11-27 14:28] VITALS: Ht 154.9 cm; Wt 56.8 kg
[2020-11-27 15:08] LABS: BASOPHILS 0.2 % (0-2); EOSINOPHILS 0 % (0-7); HEMATOCRIT 34.1 % (36.0-48.0); HEMOGLOBIN 10.3 g/dL (12-16); LYMPHOCYTES 12.7 % (15-50); MCH 24.8 pg (26.0-34.0); MCHC 30.2 g/dL (31.0-37.0); MEAN PLATELET VOLUME 7.4 fL (7.4-10.4); MONOCYTES 4.4 % (2-11); NEUTROPHILS 82.7 % (40-80); PLATELET COUNT 276 10x3/uL (130-400); RBC 4.16 10x6/uL (4.00-5.40); RDW 16.3 % (11.5-14.5); WBC 13.1 10x3/uL (4.8-10.8)
[2020-11-27 15:27] LABS: ALBUMIN 2.8 g/dL (3.4-5.0); ALKALINE PHOSPHATASE 94 U/L (30-120); AMYLASE - SERUM 13 U/L (25-115); BILIRUBIN - TOTAL 0.27 mg/dL (0.2-1.3); CALCIUM 8.5 mg/dL (8.5-10.1); CARBON DIOXIDE 26.8 mmol/L (21.0-32.0); CHLORIDE - SERUM 103 mmol/L (98-107); CREATININE - SERUM 0.6 mg/dL (0.6-1.3); LIPASE 67 U/L (73-393); PROTEIN - SERUM 6.1 g/dL (6.4-8.2); SODIUM 139 mmol/L (136-145); UREA NITROGEN 11 mg/dL (7-18); eGFR NON AFRICAN AMERICAN > 90 mL/min (90-120)
[2020-11-27 15:35] LABS: BILIRUBIN NEGATIVE (NEGATIVE); KETONE LARGE mg/dL (NEGATIVE); NITRITE NEGATIVE (NEGATIVE); UROBILINOGEN NORMAL mg/dL (< 2)
[2020-11-27 15:35] LABS: ALT (SGPT) 2 U/L (10-68); CALC OSMOLALITY 283 mosm/kg (275-300); GLUCOSE 229 mg/dL (74-106); TROPONIN-I < 0.017 ng/mL (0.000-0.060)
[2020-11-27 15:44] LABS: POTASSIUM - SERUM 2.8 mmol/L (3.5-5.1)
[2020-11-27] MEDS ORDERED: ZOFRAN ODT4 MG/UDTAB PO (18:36)
[2020-11-27] MEDS ORDERED: FLORASTOR250 MG PO (18:38)
[2020-11-27 19:50] VITALS: BP 174/83
== END 2020-11-27 19:50 | disposition other institution (70) ==
LOC: D.ER 14:22
PROVIDERS: Family Medicine
DX: R10.9 Unspecified abdominal pain (principal); R19.7 Diarrhea, unspecified; R11.2 Nausea with vomiting, unspecified; E11.40 Type 2 diabetes mellitus with diabetic neuropathy, unspecified; I11.0 Hypertensive heart disease with heart failure; I50.9 Heart failure, unspecified; J44.9 Chronic obstructive pulmonary disease, unspecified; K21.9 Gastro-esophageal reflux disease without esophagitis; M32.9 Systemic lupus erythematosus, unspecified; Z79.84 Long term (current) use of oral hypoglycemic drugs